=== PATIENT | male | born 1955 | race African-American/Black ===

== ENCOUNTER 2019-04-21 07:49 | Outpatient (CLI) | payer SELFPAY ==
--- NOTE | ~2019-04-21 | CT_ITS ---
EXAMINATION: CT brain w con EXAM DATE: 04/21/2019 08:34 INDICATION: Migraine headaches. Dizziness. Right hand paresthesia. Blurred vision. TECHNIQUE: Spiral CT of the head was performed following injection of 100 mL intravenous Omnipaque 35 0 solution. Axial, coronal and sagittal images were reviewed. The dose-length product (DLP) for thi s examination was 605.33 mGy-cm. The exposure was tailored according to patient size, and iterative reconstruction (ASIR) was used as additional dose reduction technique. There is no prior study for c omparison. FINDINGS: There is no acute intraparenchymal hemorrhage. No evidence of intraparenchymal brain mass lesion. No evidence of acute infarction. There is no mass effect or midline shift. The ventricles are normal in size. There are no extra-axial collections. There are no acute calvarial fractures. T he orbits are unremarkable. Soft tissue is unremarkable. Mild left ethmoid mucoperiosteal thickenin g. There are no areas of abnormal enhancement on the postcontrast images. IMPRESSION: 1. Unremarkable head CT examination. Reviewed, dictated and finalized at location A.
[2019-04-21 08:25] LABS: Estimated Glomerular Filt Rate > 60
== END 2019-04-21 07:50 | disposition home or self-care (01) ==
PROVIDERS: PCP Physician Assistant; Visit Provider Physician Assistant
DX: G43.909 Migraine, unspecified, not intractable, without status migrainosus (principal)
CPT/HCPCS: 36415; 70460; Q9967

== ENCOUNTER 2024-01-16 09:43 | Observation (INO) | payer MEDICARE, SELFPAY ==
[2024-01-16] VITALS (12 sets, daily range): BP systolic 116–134; BP diastolic 51–83; PULSE 40–75; RESP 15–26; TEMP 36.1–36.7; O2SAT 94–100; BMI 31.6
--- NOTE | ~2024-01-16 | US_ITS ---
US breast RT complete 01/16/2024 17:56 Indication: Breast tenderness Procedure: High-resolution complete ultrasound of the right breast including all 4 quadrants in the s ubareolar location Comparison: No prior studies for comparison. Findings: There is normal heterogeneous echotexture in the right breast. There is ill-defined shadowi ng inferiorly in the right breast although no discrete mass identified. Impression: 1: Ill-defined shadowing of the right breast inferiorly without discrete mass. Correlation with diagn ostic right mammogram recommended. BI-RADS CATEGORY 0 - INCOMPLETE STUDY, NEED ADDITIONAL IMAGING EVALUATION. Reviewed, dictated and finalized at location B. SSMENT COORDINATOR Impression: 1: Ill-defined shadowing of the right breast inferiorly without discrete mass. Correlation with diagnostic right mammogram recommended. BI-RADS CATEGORY 0 - INCOMPLETE STUDY, NEED ADDITIONAL IMAGING EVALUATION.
--- NOTE | ~2024-01-16 | XR_ITS ---
XR chest 2V Ordering provider: Anderson Teran MD History: 68 years Male with . chest pain FRONTAL WALL DIZZINESS X 2 DAYS HX HBP . Comparison: None. FINDINGS: MEDIASTINUM: The cardiac silhouette is not enlarged. LUNGS: No infiltrates, effusions or pneumothorax. OTHER: No free air under the diaphragm. Degenerative changes of the spine. IMPRESSION: No acute cardiopulmonary pathology. Reviewed, dictated and finalized at location A. KNIFE FOXING CUTTER
--- NOTE | ~2024-01-16 | CT_ITS ---
EXAMINATION: CTA brain carotid DATE: 01/17/2024 14:30 INDICATION: Dizziness. Ataxia. TECHNIQUE: Computed tomographic angiography (CTA) of the head was performed without and with 100 mL O mnipaque-350 intravenous contrast. CTA of the neck was performed with intravenous contrast. Automated exposure control and iterative reconstruction technique were employed. The dose-length product was 1 639.23 mGy-cm. Maximum intensity projection and volume rendered 3D-reconstructions were created by anitra zamarripa technologist on a separate workstation. COMPARISON: Head CT 01/16/2024 FINDINGS: HEAD CTA: There is no intracranial hemorrhage, acute infarction, or abnormal intracranial mass lesion . There are scattered areas of low attenuation in the cerebral white matter, which is within normal l imits for the patient's age. The ventricles are normal in size. The orbits are normal. There is mild mucosal thickening in the paranasal sinuses. The mastoid air cells are normal. Left vertebral artery is dominant. There is no significant stenosis of basilar artery or the posterior cerebral arteries. T he posterior communicating arteries are normal. There is no significant stenosis of the intracranial internal carotid arteries or anterior or middle cerebral arteries. Anterior communicating artery is n ormal. There is no aneurysm. There is a subcutaneous radiopaque foreign body in left cheek. NECK CTA: There are no pathologically enlarged lymph nodes. There is no significant stenosis of the v ertebral arteries. There is no significant plaque in the proximal internal carotid arteries. There is 0% stenosis of the proximal right internal carotid artery relative to normal distal artery lumen brianna meter (NASCET criteria). There is 0% stenosis of the proximal left internal carotid artery relative t o normal distal artery lumen diameter. There is mild cervical spondylosis. IMPRESSION: 1. Normal aging brain. No aneurysm or significant intracranial arterial stenosis. 2. 0% stenosis of the proximal internal carotid arteries relative to normal distal artery lumen diame ters (NASCET criteria). Reviewed, dictated and finalized at location A. ING AND MOBILITY TECHNOLOGIST IMPRESSION: 1. Normal aging brain. No aneurysm or significant intracranial arterial stenosi s. 2. 0% stenosis of the proximal internal carotid arteries relative to normal dis arslan artery lumen diameters (NASCET criteria).
--- NOTE | ~2024-01-16 | CT_ITS ---
CT brain wo con Ordering provider: Anderson Teran MD History: 68 years Male with . Vertigo . Comparison: None. Technique: CT of the head without contrast. Radiation reduction technique utilized.The dose-length product was 605.33 mGy-cm. FINDINGS: BRAIN PARENCHYMA AND CSF SPACES: No midline shift, mass effect or hemorrhage. The brain parenchyma a nd CSF spaces are otherwise normal. VISUALIZED PARANASAL SINUSES: Well aerated. MASTOIDS: Well aerated. BONES: The bones appear intact. SOFT TISSUES: Visualized nasopharynx is normal. Superficial soft tissues are normal. IMPRESSION: No acute intracranial findings. Reviewed, dictated and finalized at location A. GRADER
--- NOTE | 2024-01-16 09:46 | ECG_ITS ---
Test Date: 2024-01-16 09:48:39 Measurements Intervals [place] Rate: 72 P: 35 CA: 169 QRS: 14 QRSD: 83 T: 45 QT: 363 QTc: 397 Interpretive Statements SINUS RHYTHM No previous ECG available for comparison Electronically Signed On 01-16-2024 18:58:47 MEAT STUFFER by Luisa Rod
--- NOTE | 2024-01-16 09:52 | ED.CHESTPAIN ---
HPI - Chest Pain General Chief Complaint: Chest Pain Stated Complaint: dizzy with CP Time Seen by Provider: 01/16/24 09:51 History of Present Illness HPI narrative: [age] years old male came to the ED from home by ambulance complaining of lightheadedness, dizziness, the room spins in 50 mph, worse when he stand or changing head or body position. Denies any nausea or vomiting or fever or chills. Patient is telling me that he been having intermittent right chest pain for 1 and have year after removing a cyst from that area, the chest pain is still intermittent, not different than in the last 1 and have year. Worse with positioning and movement. History of diabetes, hypertension, hyperlipidemia, patient is not on aspirin or anticoagulant medication. Related Data Allergies Allergy/AdvReac Type Severity Reaction Status Date / Time lisinopril Allergy Severe angioedema Unverified 01/16/24 11:02 Exam Narrative: General appearance: Well-developed, well-nourished Skin: Normal color Head: Normocephalic, nontraumatic Eyes: Clear conjunctiva ENT: Oropharynx normal, ears normal, nose normal Neck: Supple, nontender Chest and respiratory: Airway patent, no respiratory distress, no accessory muscle use right chest exam showed no bruises, no swelling, no rash, severe tenderness with light palpation consistent with his previous chest pain Heart: Regular rate/rhythm Abdomen: Soft, nontender, no organomegaly, quiet bowel sounds Vascular: Normal peripheral pulses, normal capillary refill. 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 is normal as tested, no gross motor deficit Course Vital Signs Vital signs: Vital Signs Temperature 36.7 C 01/16/24 09:43 Pulse Rate 74 01/16/24 09:43 Respiratory Rate 16 01/16/24 09:43 Blood Pressure 131/66 01/16/24 09:43 Pulse Oximetry 99 01/16/24 09:43 Oxygen Delivery Room Air 01/16/24 09:43 Temperature 36.7 C 01/16/24 09:43 Pulse Rate 74 01/16/24 09:43 Respiratory Rate 16 01/16/24 09:43 Blood Pressure 131/66 01/16/24 09:43 Pulse Oximetry 99 01/16/24 09:43 Oxygen Delivery Room Air 01/16/24 09:43 MDM - Chest Pain MDM Narrative Medical decision making narrative: Patient presents with dizziness, room spinning Vital signs are stable Physical examination showing a patient with dizziness with any head or body movement. Patient is telling me that closing eyes make the dizziness less potent. Differential diagnosis include vertigo, CVA Blood workup today includes CBC, CMP, troponin, lipase showed NO SIGNIFICANT ABNORMALITY Chest x-ray showed NO ACUTE ABNORMALITY CT head without contrast showed EKG showed Differential Diagnosis Differential diagnosis: Likely other ( ABOVE) Medical Records Data Attestation: I reviewed the patient's medical records. Lab Data Attestation: I reviewed the patient's lab results. 01/16/24 09:52 01/16/24 09:52 Labs: Lab Results 01/16/24 01/16/24 Range/Units 09:52 12:57 WBC 4.8 (4.5-10.0) K/mm3 RBC 5.08 (4.6-6.20) M/mm3 Hgb 14.1 (14.0-18.0) g/dL Hct 44.2 (42.0-52.0) % MCV 87.0 (80-100) fl MCH 27.8 (26-34) pg MCHC 31.9 L (32-36) g/dl RDW 13.8 (11.5-14.5) % Plt Count 135 L (150-375) k/mm3 MPV 12.1 H (7.4-10.4) fl Immature Gran % (Auto) 0.2 (0-0.5) % Neut % (Auto) 61.2 (45.5-73.1) % Lymph % (Auto) 29.3 (18.3-44.2) % Finney % (Auto) 5.8 (2.6-8.5) % Eos % (Auto) 2.5 (0-4.4) % Baso % (Auto) 1.0 (0.2-1.2) % Lymph # (Auto) 1.41 (0.9-3.2) K/mm3 Finney # (Auto) 0.3 (0.1-0.6) K/mm3 Eos # (Auto) 0.1 (0-0.3) K/mm3 Baso # (Auto) 0.1 (0.0-0.1) K/mm3 Abs Immat Gran (auto) 0.01 (0.00-0.031) K/mm3 Absolute Neuts (auto) 3.0 (1.3-6.7) K/mm3 Absolute Nucleated RBC 0.000 (0.0-0.012) K/mm3 Nucleated RBC % 0.0 (0.0-0.2) % PT 13.7 (11.1-14.7) Seconds INR 1.0 APTT 27.8 (22.3-36.8) Seconds Sodium 140 (137-145) mmol/L Potassium 3.9 (3.4-5.0) mmol/L Chloride 108 H (98-107) mmol/L Carbon Dioxide 29 (22-30) mmol/L Anion Gap 3 L (4-12) mmol/L BUN 10 (9-20) mg/dL Creatinine 1.00 (0.7-1.3) mg/dL Estim Creat Clear Calc 66 ml/min Estimated GFR > 60 (59 - ) Glucose 110 (65-110) mg/dL Calcium 9.2 (8.4-10.2) mg/dL Total Bilirubin 0.6 (0.2-1.3) mg/dL AST 38 (17-59) U/L ALT 25 (6-50) U/L Alkaline Phosphatase 61 (38-126) U/L Troponin I 0.019 < 0.012 D (0.000-0.034) ng/mL Total Protein 8.0 (6.3-8.2) g/dL Albumin 4.2 (3.5-5.1) g/dL Lipase 90 (23-300) U/L Imaging Data Radiologist's impression: Impressions Chest X-Ray 01/16/24 10:15 IMPRESSION: No acute cardiopulmonary pathology. Head CT 01/16/24 10:46 IMPRESSION: No acute intracranial findings. ECG Data EKG #1: Attestation: I personally reviewed and interpreted this ECG as follows: ECG completion date: 01/16/24 Interpretation: NORMAL SINUS RHYTHM AT 72 BEATS PER MINUTE, NO PREVIOUS EKG AVAILABLE FOR COMPARISON EKG #2: Attestation: I personally reviewed and interpreted this ECG as follows: ECG completion date: 01/16/24 Interpretation: SINUS BRADYCARDIA AT 47 BEATS PER MINUTE, COMPARED TO EKG EARLY TODAY SINUS RHYTHM NO LONGER PRESENT Critical Care Time Critical Care Time Critical Care Time: Yes Total Critical Care Time: 30 Discharge Plan Discharge Clinical Impression: Vertigo, Bradycardia, severe sinus, Chest pain at rest Patient Disposition: Still a Patient Condition: Stable Additional Instructions: ADMIT TO HOSPITALIST Patient Language: Greek Follow-up/Referrals: Fernie,JOHAN Marie [Non-Staff] - Quality Stroke Scale Stroke Scale 1: Stroke scale date:: 01/16/24 1a Level of consciousness: alert-0 1b Level of consciousness questions: answers both correctly-0 1c Level of consciousness commands: obeys both correctly-0 2 Best gaze: normal-0 3 Visual: no visual loss-0 4 Facial palsy: normal-0 5a Motor: left arm: no drift-0 5b Motor: right arm: no drift-0 6a Motor: left leg: no drift-0 6b Motor: right leg: no drift-0 7 Limb ataxia: absent-0 8 Sensory: normal-0 9 Best language: no aphasia-0 10 Dysarthria: normal-0 11 Extinction and inattention: no abnormality-0 Level:: 0 HEART score for chest pain patients History: slightly suspicious ECG: normal Age: > or = to 65 years Risk factors: > or = to 3 risk factors of atherosclerotic disease Troponin: < or = to 1x normal limit Heart score: 4
[2024-01-16 10:02] LABS: Basophils Absolute Auto 0.1 K/mm3 (0.0-0.1); Eosinophils Absolute Auto 0.1 K/mm3 (0-0.3); Eosinophils Percent Auto 2.5 % (0-4.4); Hematocrit 44.2 % (42.0-52.0); Hemoglobin 14.1 g/dL (14.0-18.0); Immature Granulocyte Absolute 0.01 K/mm3 (0.00-0.031); Immature Granulocyte Percent A 0.2 % (0-0.5); Lymphocytes Absolute Auto 1.41 K/mm3 (0.9-3.2); Lymphocytes Percent Auto 29.3 % (18.3-44.2); Mean Corpuscular HGB Conc 31.9 g/dl (32-36); Mean Corpuscular Hemoglobin 27.8 pg (26-34); Mean Platelet Volume 12.1 fl (7.4-10.4); Monocytes Absolute Auto 0.3 K/mm3 (0.1-0.6); Monocytes Percent Auto 5.8 % (2.6-8.5); Neutrophils Percent Auto 61.2 % (45.5-73.1); Platelet Count Result 135 k/mm3 (150-375); Red Blood Count 5.08 M/mm3 (4.6-6.20); Red Cell Distribution Width 13.8 % (11.5-14.5); White Blood Count 4.8 K/mm3 (4.5-10.0)
[2024-01-16 10:10] LABS: Alanine Aminotransferase 25 U/L (6-50); Albumin Level 4.2 g/dL (3.5-5.1); Alkaline Phosphatase 61 U/L (38-126); Anion Gap 3 mmol/L (4-12); Aspartate Amino Transferase 38 U/L (17-59); Bilirubin,Total 0.6 mg/dL (0.2-1.3); Blood Urea Nitrogen 10 mg/dL (9-20); Calcium 9.2 mg/dL (8.4-10.2); Carbon Dioxide 29 mmol/L (22-30); Chloride 108 mmol/L (98-107); Estimated CRCL calculation 66 ml/min; Estimated Glomerular Filt Rate > 60; Glucose 110 mg/dL (65-110); Lipase 90 U/L (23-300); Potassium 3.9 mmol/L (3.4-5.0); Sodium 140 mmol/L (137-145)
[2024-01-16 10:14] LABS: Partial Thromboplastin Time 27.8 Seconds (22.3-36.8); Prothrombin Time 13.7 Seconds (11.1-14.7)
[2024-01-16 10:22] LABS: Troponin I 0.019 ng/mL (0.000-0.034)
[2024-01-16] MEDS: MECLIZINE HCL 25 MG TABLET PO (11:04)
[2024-01-16] MEDS: ONDANSETRON INJ 4 MG/2 ML VIAL IV PUSH (11:04)
[2024-01-16] MEDS: diazePAM (*CRX) 5 MG TABLET PO (11:04)
--- NOTE | 2024-01-16 12:02 | ECG_ITS ---
Test Date: 2024-01-16 12:08:21 Measurements Intervals [place] Rate: 47 P: 35 MN: 174 QRS: 10 QRSD: 86 T: 28 QT: 435 QTc: 385 Interpretive Statements SINUS BRADYCARDIA Compared to ECG 01/16/2024 09:48:39 Sinus rhythm no longer present Electronically Signed On 01-16-2024 19:00:00 TAX EXAMINING TECHNICIAN by Luisa Rod
--- NOTE | 2024-01-16 12:12 | PC.NURSE ---
Pt's HR back down in the 40's, repeat EKG done. MD Teran also updated, pt is still continuing to feel very dizzy with any movement, even following medications. Plan for admission per MD Teran.
--- NOTE | 2024-01-16 13:08 | ECG_ITS ---
Test Date: 2024-01-16 13:08:17 Measurements Intervals [place] Rate: 42 P: 45 NE: 172 QRS: 31 QRSD: 92 T: 46 QT: 441 QTc: 372 Interpretive Statements SINUS BRADYCARDIA Compared to ECG 01/16/2024 12:08:21 No significant changes Electronically Signed On 01-16-2024 19:01:01 CONSULTANT by Luisa Rod
[2024-01-16 13:31] LABS: Troponin I < 0.012 ng/mL (0.000-0.034)
[2024-01-16] MEDS: ASPIRIN 81 MG CHEWABLE TABLET 324 MG PO (14:54)
--- NOTE | 2024-01-16 16:48 | ECG_ITS ---
Test Date: 2024-01-16 16:48:02 Measurements Intervals [place] Rate: 41 P: 43 RI: 181 QRS: 36 QRSD: 85 T: 46 QT: 430 QTc: 355 Interpretive Statements SINUS BRADYCARDIA Compared to ECG 01/16/2024 13:08:17 No significant changes Electronically Signed On 01-17-2024 15:35:32 ART DEALER by Luisa Rod
--- NOTE | 2024-01-16 17:08 | P.HP_ITS ---
H&P: HPI History of Present Illness Date/Time: 01/16/24 17:08 Chief Complaint: Dizziness Narrative: 68-year-old male past medical history of the type 2 diabetes hypertension hyperlipidemia, history of right breast lump status post lumpectomy presented to the ER on account of dizziness and Right breast pain. Patient reported he was in his usual state of health until yesterday when he stated haivng dizziness, which he described as the room spinning. Exacerbated with movement especially with head movements. Denies any lightheadedness, no chest pressure no fall no loss of consciousness no head trauma. Also reported a right breast pain, noted about a year ago he had lumpectomy on the same side as the having his pain about a few months ago has contacted his primary care physician but are trying to set him up with General surgery. Otherwise no diarrhea no abdominal pain and vomiting focal symptoms and no runny nose. Her blood pressure 131/66, pulse 74, respiratory 16 status night 99% on room air . ER noted that patient's heart rate was in the 40s on presentation on EKG showed sinus bradycardia who receive atropine which improved heart rate into the 70s. Labs mostly unremarkable. CT head and chest unremarkable patient was admitted for further evaluation and care. neurology was consulted prior to admission. Review of Systems Review of Systems: All other systems reviewed and negative except as in the history above. Meds Home Medications and Allergies Allergies Allergy/AdvReac Type Severity Reaction Status Date / Time lisinopril Allergy Severe angioedema Unverified 01/16/24 11:02 Vital Signs Vital Signs - 24 hr 01/16/24 09:43 Temperature 98.1 F Pulse Rate 74 Respiratory Rate 16 Blood Pressure 131/66 Pulse Oximetry 99 Oxygen Delivery Room Air Exam Narrative: General: alert and comfortable Eyes: EOMI, PERRLA ENNT External ears normal, Neck is supple, no masses, Respiratory systems: Clear to auscultation Cardiovascular S1, S2, normal rhythm, no murmur, rub, or gallop; no thrill or palpable murmurs on palpation. Gastrointestinal: soft, non-tender, and non-distended abdomen with no masses; BS present Skin: no rash, lesions, ulcerations, subcutaneous nodules or induration Musculoskeletal: right breast tenderness Neurologic: Alert and oriented x3, non focal Mental Status Exam: normal affect H&P: Results Labs Labs: Short CBC 01/16/24 Range/Units 09:52 WBC 4.8 (4.5-10.0) K/mm3 Hgb 14.1 (14.0-18.0) g/dL Hct 44.2 (42.0-52.0) % Plt Count 135 L (150-375) k/mm3 BMP 01/16/24 09:52 Sodium 140 Potassium 3.9 Chloride 108 H Carbon Dioxide 29 BUN 10 Creatinine 1.00 Glucose 110 Calcium 9.2 Cardiac Enzymes 01/16/24 01/16/24 Range/Units 09:52 12:57 Troponin I 0.019 < 0.012 D (0.000-0.034) ng/mL Liver Function 01/16/24 Range/Units 09:52 Total Bilirubin 0.6 (0.2-1.3) mg/dL AST 38 (17-59) U/L ALT 25 (6-50) U/L Alkaline Phosphatase 61 (38-126) U/L Albumin 4.2 (3.5-5.1) g/dL Assessment and Plan Assessment and plan (1) Bradycardia, severe sinus: Code(s): R00.1 - Bradycardia, unspecified Status: Acute (2) Vertigo: Code(s): R42 - Dizziness and giddiness Status: Acute Plan Vertigo Patient presented with dizziness worse with movement especially head movement CT head unremarkable MRI brain ordered PT/OT consulted Neurology consulted continue Meclizine for now Possible Sinus Bradycardia EKG showed sinus bradycardia Patient received Atropine which improved HR to 70s. ECHO ordered, troponin Cardiology consulted Right breast pain tenderness on palpation Ultrasound pending GEn surgery consulted DM2 SSi with accucheks monitor HTN titrate home meds with clinical course HLD continue Statin DVT prophylaxis on Sq Lovenox Full code Surrogate decision maker [facility] Advance Care Plan I have confirmed that the patient's Advanced Care Plan is present, code status is documented, or surrogate decision maker is listed in patient medical record.: Yes Medication Reconciliation I have utilized all available resources to obtain, update and review the patients current medications (includes all prescriptions, OTC, herbals, cannabis, and nutritional supplements).: Yes
[2024-01-16 17:36] LABS: Troponin I 0.015 ng/mL (0.000-0.034)
--- NOTE | 2024-01-16 20:25 | ADMGEN ---
This patient, Jaden Hamilton, was admitted to [facility] Surg Room 303-01. Patient/family oriented to hospital policies and general routines including ID bracelet, bed and alarms, visiting hours, pain management, procedures, bathroom and other care routines, personal items, smoking policy, room service/diet, and visiting hours. Information on how to activate the Rapid Response Team has been discussed. Patient/Family are encouraged to report perceived risks to care and to ask questions if they do not understand what they are told or what they should do.
[2024-01-16 20:39] LABS: Glucose Point of Care 117 mg/dl (65-105)
[2024-01-16] MEDS: MECLIZINE HCL 12.5 MG TABLET PO (23:56)
[2024-01-17] VITALS: BP 110/60; PULSE 40; PULSE 55; RESP 20; TEMP 36.3; O2SAT 97
--- NOTE | 2024-01-17 | ECHO_ITS ---
Patient Info Name: Jaden Hamilton Age: 68 years : 1955 Gender: Male Ht: 66 in Wt: 192 lbs BSA: 2.04 m2 HR: 42 bpm BP: 123 / 59 mmHg Technical Quality: Fair Exam Date: 01/17/2024 10:05 AM Exam Location: Echo Lab Patient Status: Inpatient Admit Date: 01/16/2024 Staff Ordering Physician: Hetal Devlin MD Damper Worker: Frank Laughlin RDCS Attending Provider: Sisi Mc MD Exam Type: CA echo doppler color flow Study Info Indications R00.1 - Bradycardia, unspecified Complete two-dimensional, color flow and Doppler transthoracic echocardiogram is performed. Summary 1. Complete two-dimensional, color flow and Doppler transthoracic echocardiogram is performed. 2. Left ventricular chamber dimension is normal. 3. There is no increased left ventricular wall thickness. 4. Left ventricular systolic function is normal with an ejection fraction by Biplane Method of Discs of 63 %. 5. Normal diastolic function for age. 6. Right ventricular chamber dimension is normal. 7. Right ventricular systolic function is normal. 8. There is mild aortic valve regurgitation. 9. There is no aortic valve stenosis with a peak velocity of 190 cm/s, mean gradient of 7 mmHg, and aortic valve area of 1.7 cm2. 10. PASP cannot be 11. estimated as insufficient TR jet. Left Ventricle Left ventricular chamber dimension is normal. There is no increased left ventricular wall thickness. Left ventricular systolic function is normal with an ejection fraction by Biplane Method of Discs of 63 %. Normal diastolic function for age. Right Ventricle Right ventricular chamber dimension is normal. Right ventricular systolic function is normal. Left Atria Left atrial chamber dimension is normal. Right Atria Right atrial chamber dimension is normal. Aortic Valve The aortic valve is trileaflet. There is mild aortic valve regurgitation. There is no aortic valve stenosis with a peak velocity of 190 cm/s, mean gradient of 7 mmHg, and aortic valve area of 1.7 cm2. Mild aortic annular calcification. Mitral Valve The mitral valve has normal leaflets. There is no mitral valve regurgitation. Tricuspid Valve There is no tricuspid valve regurgitation. PASP cannot be estimated as insufficient TR jet. Pericardium/Pleural There is no pericardial effusion. Inferior Vena Cava Normal inferior vena cava with >50% collapse upon inspiration consistent with normal right atrial pressure, 3 mmHg. Aorta The prox ascending aorta size is normal. The aortic root size at the sinus of Valsalva is normal. Left Ventricular Outflow Tract Name Value Normal LVOT 2D LVOT Diameter 1.9 cm LVOT Doppler LVOT Peak Gradient 7 mmHg LVOT Mean Gradient 3 mmHg LVOT VTI 27 cm LVOT VTI/AV VTI Ratio 0.6 LVOT Stroke Volume 75 ml LVOT CO 3.1 l/min LVOT CI 1.5 l/min/m2 Pulmonic Valve Name Value Normal PV Doppler PV Peak Gradient 3 mmHg PV Regurgitation Doppler IL Peak End Diastolic Velocity 64 cm/s Mitral Valve Name Value Normal MV Doppler MV Decel Stone 429 cm/s2 MV PHT 65 ms MV Area (PHT) 3.4 cm2 4.0-5.0 MV Diastolic Function MV E Peak Velocity 97 cm/s MV A Peak Velocity 60 cm/s MV E/A 1.6 MV Decel Time 225 ms Tricuspid Valve Name Value Normal TV Regurgitation Doppler TR Peak Velocity 216 cm/s TR Peak Gradient 19 mmHg Estimated PAP/RSVP RA Pressure 3 mmHg <=5 PA Systolic Pressure 22 mmHg <36 RV Systolic Pressure 22 mmHg <36 Aorta Name Value Normal Ascending Aorta Ao Root Diameter (MM) 2.3 cm Ao Root Diam Index (MM) 1.1 cm/m2 Aortic Valve Name Value Normal AV Doppler AV Peak Velocity 190 cm/s AV Peak Gradient 14 mmHg AV Mean Gradient 7 mmHg AV VTI 44 cm AV Area (Cont Eq VTI) 1.7 cm2 >=3.0 AV Area (Cont Eq Hernandez) 2.0 cm2 AV Regurgitation 2D LVOT Area 2.8 cm2 AV Regurgitation Doppler AR Decel Time 2,702 ms AR Decel Stone 152 cm/s2 AR PHT 784 ms Ventricles Name Value Normal LV Dimensions 2D/MM IVS Diastolic Thickness (2D) 0.8 cm 0.6-1.0 IVS Diastole Thickness (MM) 0.8 cm 0.6-1.0 LVID Diastole (2D) 4.7 cm 4.2-5.8 LVID Diastole (MM) 4.9 cm 4.2-5.8 LVIW Diastolic Thickness (2D) 1.0 cm 0.6-1.0 LVIW Diastolic Thickness (MM) 0.9 cm 0.6-1.0 LVID Systole (2D) 3.0 cm 2.5-4.0 LVID Systole (MM) 2.9 cm 2.5-4.0 LVOT Diameter 1.9 cm LV Mass (2D Cubed) 145.41 g 88.00-224.00 LV Mass Index (2D Cubed) 71 g/m2 49-115 Relative Wall Thickness (2D) 0.45 LV Mass (MM Cubed) 145.77 g 88.00-224.00 LV Mass Index (MM Cubed) 71 g/m2 49-115 Relative Wall Thickness (MM) 0.36 LV Fractional Shortening/Ejection Fraction 2D/MM LV Fractional Shortening (2D) 35 % 25-43 LV Fractional Shortening (MM) 42 % 25-43 LV EF (MM Teicholz) 73 % 52-72 LV EF (2D Teicholz) 65 % 52-72 LV Diastolic Volume (4C MOD) 98 ml LV EF (4C MOD) 65 % LV Diastolic Volume (2C MOD) 49 ml LV EF (2C MOD) 66 % LV Diastolic Volume (BP MOD) 72 ml 62-150 LV Diastolic Volume Index (BP MOD) 35 ml/m2 34-74 LV Systolic Volume (BP MOD) 26 ml 21-61 LV Systolic Volume Index (BP MOD) 13 ml/m2 11-31 LV EF (BP MOD) 63 % 52-72 LV Diastolic Length (4C) 9.3 cm LV Systolic Length (4C) 7.6 cm LV Stroke Volume (4C MOD) 63 ml Atria Name Value Normal LA Dimensions LA Dimension (MM) 3.9 cm 3.0-4.1 LA Volume (4C A-L) 43 ml LA Volume (BP A-L) 42 ml RA Dimensions RA Area (4C) 12.3 cm2 <=18.0 Report Signatures
[2024-01-17 04:00] VITALS: BP 123/59; PULSE 41; PULSE 42; RESP 20; TEMP 36.3; O2SAT 100
[2024-01-17 07:38] LABS: Basophils Absolute Auto 0.1 K/mm3 (0.0-0.1); Basophils Percent Auto 1.3 % (0.2-1.2); Eosinophils Absolute Auto 0.2 K/mm3 (0-0.3); Eosinophils Percent Auto 3.4 % (0-4.4); Hematocrit 42.1 % (42.0-52.0); Hemoglobin 13.5 g/dL (14.0-18.0); Immature Granulocyte Absolute 0.01 K/mm3 (0.00-0.031); Immature Granulocyte Percent A 0.2 % (0-0.5); Lymphocytes Absolute Auto 1.83 K/mm3 (0.9-3.2); Lymphocytes Percent Auto 38.7 % (18.3-44.2); Mean Corpuscular HGB Conc 32.1 g/dl (32-36); Mean Corpuscular Hemoglobin 27.8 pg (26-34); Mean Corpuscular Volume 86.6 fl (80-100); Mean Platelet Volume 12.7 fl (7.4-10.4); Monocytes Absolute Auto 0.3 K/mm3 (0.1-0.6); Monocytes Percent Auto 6.6 % (2.6-8.5); Neutrophils Absolute Auto 2.4 K/mm3 (1.3-6.7); Neutrophils Percent Auto 49.8 % (45.5-73.1); Platelet Count Result 135 k/mm3 (150-375); Red Blood Count 4.86 M/mm3 (4.6-6.20); Red Cell Distribution Width 13.9 % (11.5-14.5); White Blood Count 4.7 K/mm3 (4.5-10.0)
[2024-01-17 07:57] LABS: Alanine Aminotransferase 24 U/L (6-50); Albumin Level 3.9 g/dL (3.5-5.1); Alkaline Phosphatase 57 U/L (38-126); Anion Gap 3 mmol/L (4-12); Aspartate Amino Transferase 36 U/L (17-59); Bilirubin,Total 0.8 mg/dL (0.2-1.3); Blood Urea Nitrogen 12 mg/dL (9-20); Carbon Dioxide 30 mmol/L (22-30); Chloride 108 mmol/L (98-107); Estimated CRCL calculation 56 ml/min; Estimated Glomerular Filt Rate > 60; Glucose 87 mg/dL (65-110); Magnesium 2.2 mg/dL (1.6-2.3); Potassium 3.9 mmol/L (3.4-5.0); Sodium 141 mmol/L (137-145)
[2024-01-17 08:00] VITALS: BP 135/58; PULSE 40; PULSE 42; RESP 16; TEMP 35.9; O2SAT 94
[2024-01-17 08:00] LABS: Glucose Point of Care 96 mg/dl (65-105)
--- NOTE | 2024-01-17 11:32 | PM.CNGS ---
Assessment and Plan Assessment and plan (1) Pain of right breast: Code(s): N64.4 - Mastodynia Status: Acute Assessment and Plan: This is the reason for our consultation. The patient has had right breast pain and tenderness of a subareolar scar following a breast surgery about 1 year ago. This pain is unchanged over the past year and etiology is unclear. There is no signs of an infection on exam, and this appears to be more of a chronic issue. Right breast ultrasound showed shadowing of the inferior right breast without discrete mass. This does not appear to be contributing to his acute issues that prompted his admission. We will order a diagnostic right mammogram as recommended by the radiologist. If there is no concern for malignancy, then the patient can follow-up with his surgeon in [place] as an outpatient or he can see Dr. Rosenberg, the breast surgeon here at [place] as an outpatient in February. (2) Bradycardia, severe sinus: Code(s): R00.1 - Bradycardia, unspecified Status: Acute (3) Vertigo: Code(s): R42 - Dizziness and giddiness Status: Acute Plan I have discussed the patient's case and plan of care with Dr. Goode. Thank you for allowing us to see the patient in consultation. History of Present Illness Consult details Consult date: 01/17/24 Reason for consult: other (Right breast pain) Requesting physician: Hetal Devlin MD Narrative: This is a 68-year-old man who we have been asked to see in surgical consultation for right breast pain. He presented to the ED yesterday due to complaints of lightheadedness and dizziness x 1 day. When he was in the ED, he also reported right-sided chest pain which has been ongoing for the past year. The patient reportedly had breast surgery at [facility] 1 year ago. He reports having some type of ?lump? removed. He cannot recall with the pathology showed, but when questioned further, he thought it may have been a cyst. He states that it was not a malignancy. He denies having any postoperative complications or postop infections. Immediately after surgery, he continued to notice a smaller lump that was buffing machine tender and painful. This was the reason he initially had the surgery was due to the pain. Since the surgery, he has had tenderness in this area an intermittent pain that remains unchanged for the past year. He was told by the surgeon at that time, that they would do an additional surgery, but he has not heard back from the office and has not contacted them. He denies any nipple drainage or increased swelling or changes more recently. Workup in the ED showed bradycardia and he was admitted for further workup. Cardiology has been consulted and he got an echocardiogram this morning. He is now seen in consultation. Right breast ultrasound was ordered this morning and showed an ill-defined shadowing of the right breast inferiorly without discrete mass, recommending correlation with diagnostic right mammogram. Review of Systems Review of Systems: All systems reviewed & are unremarkable except as noted in HPI and below [facility] Surgical History Surgical History History of reduction surgery of right breast Social History Social History Second hand tobacco smoke exposure: No Alcohol intake: former Substance use: never Do You Feel Safe in your Home?: Yes Lack of Transportation: No Lack of Food: Never True Current Housing: I Have Housing Concerned About Future Housing: No Difficulty Paying Gas/Electric Bills: No Difficulty Paying for Meds: No Currently Unemployed: No Education: High School Diploma/GED Difficulty w/ Childcare or Family Care: No Spiritual care concerns: No Meds Home Medications and Allergies Home Medications ?Medication ?Instructions ?Recorded ?Confirmed ?Type amlodipine 10 mg tablet 10 mg PO DAILY 01/16/24 01/16/24 History celecoxib 100 mg capsule 100 mg PO Q24H 01/16/24 01/16/24 History cetirizine 10 mg tablet 10 mg PO DAILY 01/16/24 01/16/24 History hydrochlorothiazide 12.5 mg capsule 12.5 mg PO DAILY 01/16/24 01/16/24 History metformin 500 mg tablet,extended 500 mg PO DAILY 01/16/24 01/16/24 History release 24 hr rosuvastatin 20 mg tablet 20 mg PO HS 01/16/24 01/16/24 History spironolactone 25 mg tablet 25 mg PO DAILY 01/16/24 01/16/24 History Allergies Allergy/AdvReac Type Severity Reaction Status Date / Time lisinopril Allergy Severe angioedema Verified 01/16/24 21:57 Vital Signs Vital Signs - 24 hr 01/16/24 12:00 01/16/24 12:05 01/16/24 12:30 Temperature Pulse Rate 46 L 46 L Respiratory Rate 18 16 Blood Pressure 126/65 125/59 L Pulse Oximetry 99 94 Oxygen Delivery Room Air 01/16/24 13:30 01/16/24 14:30 01/16/24 15:30 Temperature Pulse Rate 46 L 47 L 58 L Respiratory Rate 18 18 16 Blood Pressure 117/53 L 125/68 129/83 Pulse Oximetry 99 98 98 Oxygen Delivery 01/16/24 16:30 01/16/24 18:08 01/16/24 20:00 Temperature 97.0 F L Pulse Rate 43 L 40 L 75 Respiratory Rate 16 16 16 Blood Pressure 116/70 134/60 117/51 L Pulse Oximetry 96 98 100 Oxygen Delivery 01/16/24 20:00 01/16/24 20:00 01/17/24 00:00 Temperature Pulse Rate 42 L 55 L Respiratory Rate Blood Pressure Pulse Oximetry Oxygen Delivery Room Air 01/17/24 00:00 01/17/24 04:00 01/17/24 04:00 Temperature 97.4 F L 97.4 F L Pulse Rate 40 L 41 L 42 L Respiratory Rate 20 20 Blood Pressure 110/60 123/59 L Pulse Oximetry 97 100 Oxygen Delivery 01/17/24 08:00 01/17/24 08:00 01/17/24 08:00 Temperature 96.7 F L Pulse Rate 42 L 40 L Respiratory Rate 16 Blood Pressure 135/58 L Pulse Oximetry 94 Oxygen Delivery Room Air Exam Const: General: comfortable and no acute distress Nutritional Appearance: average body habitus Orientation/consciousness: patient oriented x3 HENMT: Head: normocephalic and atraumatic Ears: hearing grossly normal bilaterally Mouth: Yes moist mucous membranes Eyes: General: appearance normal, both eyes and all related structures Pupils: Equal, round and reactive pupils present Neck: Neck: normal visual inspection and full ROM Chest: Breast/axilla inspection: normal inspection of the axillae Breast/axilla palpation: normal palpation of the axillae Chest/axillae images:  1. Small linear area of skin thickening right at the inferior edge of the aerola that is tender and appears to possibly be where his scar is from the previous breast surgery. No obvious palpable mass, no nipple drainage or nipple abnormalities or inversion, no erythema. There is mild tenderness to this area. Resp: Effort & Inspection: no respiratory distress Auscultation: clear to auscultation bilaterally Cardio: Rate: bradycardic Rhythm: regular rhythm GI: Inspection: non-distended GI Palp: Yes Soft to palpation, No Tenderness to palpation present (GI), No Guarding due to palpation present (GI) and No Rebound tenderness present Auscultation: normal bowel sounds Skin: General skin exam: normal color Neuro: General: moves all extremities and no focal motor deficits Speech: normal speech Motor exam (neuro): 5/5 motor strength present throughout Extrem: General: normal to inspection and no edema Psych: Mental Status: mental status grossly normal Attitude: cooperative Insight: Good insight present (Psych) Judgement: Good judgement present (Psych) Results Labs 01/17/24 06:36 01/17/24 06:36 Labs: Abnormal lab results 01/16/24 01/17/24 Range/Units 20:00 06:36 Hgb 13.5 L (14.0-18.0) g/dL Plt Count 135 L (150-375) k/mm3 MPV 12.7 H (7.4-10.4) fl Baso % (Auto) 1.3 H (0.2-1.2) % Chloride 108 H (98-107) mmol/L Anion Gap 3 L (4-12) mmol/L POC Capillary Glucose 117 H (65-105) mg/dl Diabetes panel 01/17/24 Range/Units 06:36 Sodium 141 (137-145) mmol/L Potassium 3.9 (3.4-5.0) mmol/L Chloride 108 H (98-107) mmol/L Carbon Dioxide 30 (22-30) mmol/L BUN 12 (9-20) mg/dL Creatinine 1.20 (0.7-1.3) mg/dL Glucose 87 (65-110) mg/dL Calcium 9.0 (8.4-10.2) mg/dL AST 36 (17-59) U/L ALT 24 (6-50) U/L Alkaline Phosphatase 57 (38-126) U/L Total Protein 7.0 (6.3-8.2) g/dL Albumin 3.9 (3.5-5.1) g/dL Calcium panel 01/17/24 Range/Units 06:36 Calcium 9.0 (8.4-10.2) mg/dL Albumin 3.9 (3.5-5.1) g/dL Pituitary panel 01/17/24 Range/Units 06:36 Sodium 141 (137-145) mmol/L Potassium 3.9 (3.4-5.0) mmol/L Chloride 108 H (98-107) mmol/L Carbon Dioxide 30 (22-30) mmol/L BUN 12 (9-20) mg/dL Creatinine 1.20 (0.7-1.3) mg/dL Glucose 87 (65-110) mg/dL Calcium 9.0 (8.4-10.2) mg/dL Adrenal panel 01/17/24 Range/Units 06:36 Sodium 141 (137-145) mmol/L Potassium 3.9 (3.4-5.0) mmol/L Chloride 108 H (98-107) mmol/L Carbon Dioxide 30 (22-30) mmol/L BUN 12 (9-20) mg/dL Creatinine 1.20 (0.7-1.3) mg/dL Glucose 87 (65-110) mg/dL Calcium 9.0 (8.4-10.2) mg/dL Total Bilirubin 0.8 (0.2-1.3) mg/dL AST 36 (17-59) U/L ALT 24 (6-50) U/L Alkaline Phosphatase 57 (38-126) U/L Total Protein 7.0 (6.3-8.2) g/dL Albumin 3.9 (3.5-5.1) g/dL All other labs normal. Imaging Additional studies: ITS Impressions Chest X-Ray 01/16/24 10:15 IMPRESSION: No acute cardiopulmonary pathology. Head CT 01/16/24 10:46 IMPRESSION: No acute intracranial findings. Breast Ultrasound 01/17/24 08:02 Impression: 1: Ill-defined shadowing of the right breast inferiorly without discrete mass. Correlation with diagnostic right mammogram recommended. BI-RADS CATEGORY 0 - INCOMPLETE STUDY, NEED ADDITIONAL IMAGING EVALUATION.
[2024-01-17 11:58] LABS: Glucose Point of Care 77 mg/dl (65-105)
[2024-01-17 12:00] VITALS: BP 136/51; PULSE 42; PULSE 44; RESP 18; TEMP 36.3; O2SAT 98
--- NOTE | 2024-01-17 13:16 | P.PNNEUR_ITS ---
Progress Note: A&P Assessment and Plan (1) Vertigo: Code(s): R42 - Dizziness and giddiness Status: Acute Assessment and Plan: in addition he also has complaints of tinnitus, bilateral hearing loss and a muscle contraction type headache. He is unable to undergo MRI since there is some metal in the head which were identified while and attempts were being made to do an MRI. In view of the history of diet mellitus a possible brainstem ischemic attack should be considered and hence and CT angiogram head and neck is recommended. Symptomatic treatment and vestibular exercises would be offered if the CT angiogram did not show any abnormality. Symptomatic treatment may include drugs such as nortriptyline 25 mg at bedtime and vestibular exercises through physical therapy department. I shall be glad to follow up in my office with the results. I have given him my phone number to contact if necessary. (2) Pain of right breast: Code(s): N64.4 - Mastodynia Status: Acute Assessment and Plan: This is being evaluated by surgery. He has had a surgery for a lump in the right breast which continues to have some discomfort in this area. (3) Bradycardia, severe sinus: Code(s): R00.1 - Bradycardia, unspecified Status: Acute Subjective Date/time seen: 01/17/24 13:16 Interval history: 68-year-old presented with complaints of dizziness or sense of rotation which is describes as being severe but is now improving. He also has had pain in the right chest for last 1 year for which he is being evaluated by General surgery. There is history of diabetes mellitus. He has had symptoms of dizziness on and off in the last 1 year but in the past he used to be short-lived. He also has loss of hearing and tinnitus on both sides. He has sense of imbalance that he attributes to having above symptoms. The patient lives his . He does not smoke but drinks alcohol occasionally. He is retired now. He that he always have some headache for several years. Headaches a generalized. He has not had any fall or injuries. The dizziness can occur while turning even in the bed or getting out of the bed or looking sideways upper down. No diplopia or difficulty speech or swallowing. No weakness in upper lower limbs. He is able to walk independently without any support. No passing out spells. Review of Systems Constitutional: Constitutional: Denies chills, Denies fever(s) and Denies weight loss Eyes: Eyes: Denies diplopia and Denies loss of vision ENT: Reports dizziness, Reports hearing loss and Reports tinnitus Cardiovascular: Cardiovascular: Reports chest pain ( Right chest pain since surgery for tumor in right breast), Denies syncope and Denies dyspnea Respiratory: Respiratory: Denies cough, Denies dyspnea and Denies wheezing Gastrointestinal: Gastrointestinal: Denies abdominal pain, Denies change in bowel habits and Denies vomiting Genitourinary: Genitourinary: Denies urinary incontinence Musculoskeletal: Musculoskeletal: Denies arthralgias and Denies joint swelling Integumentary/Breasts: Skin/Breast: Denies new lesions and Denies rash Neurologic: Reports as per HPI, Reports dizziness, Denies syncope and Denies loss of vision Psychiatric: Psychiatric: Denies anxiety and Denies depression Endocrine: Endocrine: Denies cold intolerance and Denies heat intolerance Hematologic/Lymphatic: Hematologic/Lymphatic: Denies easy bleeding and Denies easy bruising Allergic/Immunologic: Allergic/Immunologic: Denies no additional allergic/immunologic complaints and Denies wheezing Exam Const: General: no acute distress Orientation/consciousness: oriented to person, oriented to place and oriented to time HENMT: Head: normocephalic and atraumatic Ears: hearing grossly normal bilaterally and external ears normal Face/Nose/Sinus: Normal external nose present Mouth: Yes Normal oral and palatal mucosa present Eyes: General: appearance normal, both eyes and all related structures Eyelids: eyelids normal Conjunctivae: conjunctivae normal Pupils: Equal, round and reactive pupils present EOM: EOMs intact bilaterally and No Nystagmus present Neck: Neck: normal visual inspection Resp: Effort & Inspection: normal respiratory effort Cardio: Rate: regular rate Rhythm: regular rhythm Heart sounds: Murmur heart sound present systolic Other: systolic murmur radiates to both carotid arteries Skin: General skin exam: normal color Neuro: General: oriented to person, oriented to place and oriented to time Cranial nerves: Yes CN's II-XII intact bilaterally, Yes Equal, round and reactive pupils present, Yes Bilaterally intact EOM present, Yes Nystagmus not present, Yes Normal facial strength present, Yes facial symmetry, Yes Midline tongue present, Yes Symmetric palate elevation present, Yes Normal hearing present, Yes Ability to bilaterally elevate shoulders present and No Nystagmus present Speech: normal speech Motor exam (neuro): 5/5 motor strength present throughout, Normal motor muscle tone present throughout and Motor abnormalities not present Sensory Exam: normal sensation Deep tendon reflexes (DTR's): Right triceps reflex intensity grade: 0, Left triceps reflex intensity grade: 0, Rt Biceps (C5, C6): 0, Left biceps reflex intensity grade: 0, Right brachioradialis reflex intensity grade: 0, Left brachioradialis reflex intensity grade: 0, Right patellar reflex intensity grade: 0, Left patellar reflex intensity grade: 0, Right ankle reflex intensity grade: 0 and Left ankle reflex intensity grade: 0 Coordination: [id number] test normal Extrem: General: normal to inspection Psych: Appearance: grossly normal Mental Status: mental status grossly n ormal Affect: normal affect Attitude: cooperative Objective Data Vital Signs Vital Signs: Vital Signs - 24 hr 01/16/24 13:30 01/16/24 14:30 01/16/24 15:30 Temperature Pulse Rate 46 L 47 L 58 L Respiratory Rate 18 18 16 Blood Pressure 117/53 L 125/68 129/83 Pulse Oximetry 99 98 98 Oxygen Delivery 01/16/24 16:30 01/16/24 18:08 01/16/24 20:00 Temperature 97.0 F L Pulse Rate 43 L 40 L 75 Respiratory Rate 16 16 16 Blood Pressure 116/70 134/60 117/51 L Pulse Oximetry 96 98 100 Oxygen Delivery 01/16/24 20:00 01/16/24 20:00 01/17/24 00:00 Temperature Pulse Rate 42 L 55 L Respiratory Rate Blood Pressure Pulse Oximetry Oxygen Delivery Room Air 01/17/24 00:00 01/17/24 04:00 01/17/24 04:00 Temperature 97.4 F L 97.4 F L Pulse Rate 40 L 41 L 42 L Respiratory Rate 20 20 Blood Pressure 110/60 123/59 L Pulse Oximetry 97 100 Oxygen Delivery 01/17/24 08:00 01/17/24 08:00 01/17/24 08:00 Temperature 96.7 F L Pulse Rate 42 L 40 L Respiratory Rate 16 Blood Pressure 135/58 L Pulse Oximetry 94 Oxygen Delivery Room Air 01/17/24 12:00 Temperature 97.4 F L Pulse Rate 44 L Respiratory Rate 18 Blood Pressure 136/51 L Pulse Oximetry 98 Oxygen Delivery Intake/Output Intake/Output: Intake & Output 01/14/24 01/15/24 01/16/2412/24 23:59 23:59 23:59 23:59 Intake Total 200 Balance 200 Meds/Results Medications: Active Medications Generic Name Dose Route Start Last Admin Trade Name Tyshawn PRN Reason Stop Dose Admin Acetaminophen 650 mg 01/16/24 15:58 Acetaminophen 325 Mg Tablet PO Q4H PRN Mild Pain (1-3) or Fever Aspirin 81 mg 01/17/24 08:00 Aspirin 81 Mg Chewable Tablet PO DAILY@0800 [facility] Dextrose 12.5 gm 01/16/24 17:17 Dextrose 50% 25 Gm/50 Ml Syringe IV PUSH PRN PRN Hypoglycemia Protocol Glucagon 1 mg 01/16/24 17:17 Glucagon For Inj 1 Mg Vial IM PRN PRN Hypoglycemia Protocol Glucose 15 gm 01/16/24 17:17 Glucose Oral Gel 15 Gm Of Glucse In 37.5 Gm Tube PO PRN PRN Hypoglycemia Protocol Dextrose 1,000 mls @ 100 mls/hr 01/16/24 17:17 Dextrose 5% 1,000 Ml IVPB PRN PRN Hypoglycemia Protocol Insulin Aspart 2 - 5 units 01/17/24 08:00 01/17/24 09:21 Insulin Aspart (*Bkc) 100 Units/Ml SUB-Q Not Given TIDWM [facility] Protocol Meclizine HCl 12.5 mg 01/16/24 23:24 01/16/24 23:56 Meclizine Hcl 12.5 Mg Tablet PO 12.5 mg QID PRN Administration Dizziness Perflutren Lipid Microsphere 0 ml 01/16/24 17:07 Perflutren Lipid Microspheres 1.5 Ml Vial Diluted To 10 Ml Total Volume IV PUSH 01/19/24 17:07 ONCE PRN adequate visualization Protocol Radiology Results: ITS Impressions Chest X-Ray 01/16/24 10:15 IMPRESSION: No acute cardiopulmonary pathology. Head CT 01/16/24 10:46 IMPRESSION: No acute intracranial findings. Breast Ultrasound 01/17/24 08:02 Impression: 1: Ill-defined shadowing of the right breast inferiorly without discrete mass. Correlation with diagnostic right mammogram recommended. BI-RADS CATEGORY 0 - INCOMPLETE STUDY, NEED ADDITIONAL IMAGING EVALUATION. Labs Labs: Laboratory Results - last 24 hr 01/16/24 01/16/24 01/16/24 12:57 16:47 20:00 WBC RBC Hgb Hct MCV MCH MCHC RDW Plt Count MPV Immature Gran % (Auto) Neut % (Auto) Lymph % (Auto) [place] % (Auto) Eos % (Auto) Baso % (Auto) Lymph # (Auto) [place] # (Auto) Eos # (Auto) Baso # (Auto) Abs Immat Gran (auto) Absolute Neuts (auto) Absolute Nucleated RBC Nucleated RBC % Sodium Potassium Chloride Carbon Dioxide Anion Gap BUN Creatinine Estim Creat Clear Calc Estimated GFR Glucose POC Capillary Glucose 117 H Calcium Magnesium Total Bilirubin AST ALT Alkaline Phosphatase Troponin I < 0.012 D 0.015 D Total Protein Albumin 01/17/24 01/17/24 01/17/24 06:36 07:49 11:55 WBC 4.7 RBC 4.86 Hgb 13.5 L Hct 42.1 MCV 86.6 MCH 27.8 MCHC 32.1 RDW 13.9 Plt Count 135 L MPV 12.7 H Immature Gran % (Auto) 0.2 Neut % (Auto) 49.8 Lymph % (Auto) 38.7 [place] % (Auto) 6.6 Eos % (Auto) 3.4 Baso % (Auto) 1.3 H Lymph # (Auto) 1.83 [place] # (Auto) 0.3 Eos # (Auto) 0.2 Baso # (Auto) 0.1 Abs Immat Gran (auto) 0.01 Absolute Neuts (auto) 2.4 Absolute Nucleated RBC 0.000 Nucleated RBC % 0.0 Sodium 141 Potassium 3.9 Chloride 108 H Carbon Dioxide 30 Anion Gap 3 L BUN 12 Creatinine 1.20 Estim Creat Clear Calc 56 Estimated GFR > 60 Glucose 87 POC Capillary Glucose 96 77 Calcium 9.0 Magnesium 2.2 Total Bilirubin 0.8 AST 36 ALT 24 Alkaline Phosphatase 57 Troponin I Total Protein 7.0 Albumin 3.9
--- NOTE | 2024-01-17 13:18 | P.CONCA_ITS ---
Assessment and Plan Assessment and plan (1) Bradycardia, severe sinus: Code(s): R00.1 - Bradycardia, unspecified Status: Acute Plan 1. Sinus bradycardia -none no pauses or AV blocks noted on telemetry -denies any history of lightheadedness, dizziness, palpitation, presyncope or syncope in the past. This episode of dizziness started 2 days ago which is more apparent on opening his eyes and the neck movements -avoid any AV reshma blocking agents -no indication for a pacemaker for now -will do a treadmill test to assess chronotropic competence. He says he will be able to do it tomorrow many feels much better -consider discharging home on an event monitor History of Present Illness History of Present Illness Consult date/time: 01/17/24 13:18 Requesting physician: Hetal Devlin MD Reason For Visit: Vertigo, chest pain Narrative: 68-year-old male past medical history of the type 2 diabetes hypertension hyperlipidemia, history of right breast lump status post lumpectomy presented to the ER on account of dizziness and Right breast pain. Cardiology consulted for sinus bradycardia As per the patient that he started having episodes of what appears to be vertigo in which he describes as room spinning specially on opening his eyes and on head movement. It is better now and he can open his eyes And denied any lightheadedness, any chest pain or shortness of breath There were no similar prior episodes He denies any palpitation, dizziness, lightheadedness, presyncope syncope He does feel tired, especially after moderate to severe exertional activity Denies any prior CAD, CVA or VA Does not seem to be on any AV reshma agents Negative troponin EKG shows sinus bradycardia Echocardiogram pending Review of Systems 2 Review of Systems: All other systems reviewed and negative except as in the history above. All systems reviewed & are unremarkable except as noted in HPI and below [facility] History Surgical History History of reduction surgery of right breast Social History Social History Second hand tobacco smoke exposure: No Alcohol intake: former Substance use: never Do You Feel Safe in your Home?: Yes Lack of Transportation: No Lack of Food: Never True Current Housing: I Have Housing Concerned About Future Housing: No Difficulty Paying Gas/Electric Bills: No Difficulty Paying for Meds: No Currently Unemployed: No Education: High School Diploma/GED Difficulty w/ Childcare or Family Care: No Spiritual care concerns: No Meds Home Medications and Allergies Home Medications ?Medication ?Instructions ?Recorded ?Confirmed ?Type amlodipine 10 mg tablet 10 mg PO DAILY 01/16/24 01/16/24 History celecoxib 100 mg capsule 100 mg PO Q24H 01/16/24 01/16/24 History cetirizine 10 mg tablet 10 mg PO DAILY 01/16/24 01/16/24 History hydrochlorothiazide 12.5 mg capsule 12.5 mg PO DAILY 01/16/24 01/16/24 History metformin 500 mg tablet,extended 500 mg PO DAILY 01/16/24 01/16/24 History release 24 hr rosuvastatin 20 mg tablet 20 mg PO HS 01/16/24 01/16/24 History spironolactone 25 mg tablet 25 mg PO DAILY 01/16/24 01/16/24 History Allergies Allergy/AdvReac Type Severity Reaction Status Date / Time lisinopril Allergy Severe angioedema Verified 01/16/24 21:57 Vital Signs Vital Signs - 24 hr 01/16/24 13:30 01/16/24 14:30 01/16/24 15:30 Temperature Pulse Rate 46 L 47 L 58 L Respiratory Rate 18 18 16 Blood Pressure 117/53 L 125/68 129/83 Pulse Oximetry 99 98 98 Oxygen Delivery 01/16/24 16:30 01/16/24 18:08 01/16/24 20:00 Temperature 36.1 C L Pulse Rate 43 L 40 L 75 Respiratory Rate 16 16 16 Blood Pressure 116/70 134/60 117/51 L Pulse Oximetry 96 98 100 Oxygen Delivery 01/16/24 20:00 01/16/24 20:00 01/17/24 00:00 Temperature Pulse Rate 42 L 55 L Respiratory Rate Blood Pressure Pulse Oximetry Oxygen Delivery Room Air 01/17/24 00:00 01/17/24 04:00 01/17/24 04:00 Temperature 36.3 C L 36.3 C L Pulse Rate 40 L 41 L 42 L Respiratory Rate 20 20 Blood Pressure 110/60 123/59 L Pulse Oximetry 97 100 Oxygen Delivery 01/17/24 08:00 01/17/24 08:00 01/17/24 08:00 Temperature 35.9 C L Pulse Rate 42 L 40 L Respiratory Rate 16 Blood Pressure 135/58 L Pulse Oximetry 94 Oxygen Delivery Room Air 01/17/24 12:00 Temperature 36.3 C L Pulse Rate 44 L Respiratory Rate 18 Blood Pressure 136/51 L Pulse Oximetry 98 Oxygen Delivery Exam 2 Narrative: General: alert and comfortable Eyes: EOMI, PERRLA ENNT External ears normal, Neck is supple, no masses, Respiratory systems: Clear to auscultation Cardiovascular S1, S2, normal rhythm, no murmur, rub, or gallop; no thrill or palpable murmurs on palpation. Gastrointestinal: soft, non-tender, and non-distended abdomen with no masses; BS present Skin: no rash, lesions, ulcerations, subcutaneous nodules or induration Musculoskeletal: right breast tenderness Neurologic: Alert and oriented x3, non focal Mental Status Exam: normal affect Const: General: comfortable, no acute distress and average body habitus N utritional Appearance: average body habitus Orientation/consciousness: p atient oriented x3 HENMT: Head: normocephalic and atraumatic Ears: hearing grossly normal bilaterally Mouth: Yes moist mucous membranes Eyes: General: appearance normal, both eyes and all related structures P upils: Equal, round and reactive pupils present Neck: Neck: normal visual inspection and full ROM Chest: Breast/axilla inspection: normal inspection of the axillae B reast/axilla palpation: normal palpation of the axillae Resp: Effort & Inspection: no respiratory distress Auscultation: clear to auscultation bilaterally Cardio: Rate: bradycardic Rhythm: regular rhythm GI: Inspection: non-distended Auscultation: normal bowel sounds Skin: General skin exam: normal color Neuro: General: patient oriented x3, moves all extremities and no focal motor deficits Cranial nerves: Yes Equal, round and reactive pupils present S peech: normal speech Motor exam (neuro): 5/5 motor strength present throughout Extrem: General: normal to inspection and no edema Psych: Mental Status: mental status grossly normal Attitude: cooperative Insight: Good insight present (Psych) Judgement: Good judgement present (Psych) Results Labs and Meds 01/17/24 06:36 01/17/24 06:36 Lab results: Cardiac Enzymes 01/16/24 01/16/2424 Range/Units 12:57 16:47 06:36 AST 36 (17-59) U/L Troponin I < 0.012 D 0.015 D (0.000-0.034) ng/mL CBC 01/17/24 Range/Units 06:36 WBC 4.7 (4.5-10.0) K/mm3 RBC 4.86 (4.6-6.20) M/mm3 Hgb 13.5 L (14.0-18.0) g/dL Hct 42.1 (42.0-52.0) % Plt Count 135 L (150-375) k/mm3 Lymph # (Auto) 1.83 (0.9-3.2) K/mm3 [place] # (Auto) 0.3 (0.1-0.6) K/mm3 Eos # (Auto) 0.2 (0-0.3) K/mm3 Baso # (Auto) 0.1 (0.0-0.1) K/mm3 Comprehensive Metabolic Panel 01/17/24 Range/Units 06:36 Sodium 141 (137-145) mmol/L Potassium 3.9 (3.4-5.0) mmol/L Chloride 108 H (98-107) mmol/L Carbon Dioxide 30 (22-30) mmol/L BUN 12 (9-20) mg/dL Creatinine 1.20 (0.7-1.3) mg/dL Glucose 87 (65-110) mg/dL Calcium 9.0 (8.4-10.2) mg/dL AST 36 (17-59) U/L ALT 24 (6-50) U/L Alkaline Phosphatase 57 (38-126) U/L Total Protein 7.0 (6.3-8.2) g/dL Albumin 3.9 (3.5-5.1) g/dL Intake and Output 01/16/24 01/17/24 01/17/24 23:59 07:59 15:59 Intake Total 200 Balance 200 Intake: Oral 200 Other: # Unmeasured Voids 1
--- NOTE | 2024-01-17 13:26 | P.CONNEU_ITS ---
Assessment and Plan Assessment and plan (1) Vertigo: Code(s): R42 - Dizziness and giddiness Status: Acute Assessment and Plan: the differential diagnosis would include possibility of a peripheral vessel pathology versus brainstem ischemia in view of the history of diabetes mellitus. He is unable to go MRI of brain and hence I will suggest a CT angiogram head and neck. This does not show any significant abnormal findings he may be referred to vestibular therapy. Symptomatic treatment for headache with nortriptyline 25 mg HS could be a consideration. I shall be glad to see him the office for follow-up evaluation. (2) Bradycardia, severe sinus: Code(s): R00.1 - Bradycardia, unspecified Status: Acute (3) Chest pain at rest: Code(s): R07.9 - Chest pain, unspecified Status: Acute Consult date: 01/17/24 HPI: Jaden Hamilton is a 68 year old male A presented to the hospital with the attack of dizziness or vertigo which lasted for several hours and after that he has improved. He also has pain in the right chest wall area however this started after he had a surgery for lump in the right breast about a year ago. This is being evaluated by surgery. He was also found to have a low heart rate around 42 which responded to atropine and it improved to 72. CT scan of brain did not show any abnormality. He also has history of diabetes mellitus. He also complains of tinnitus and a some hearing loss and less sense of imbalance. He also has some sinus problems. Patient is a retired and lives his . He does not smoke. He also has frequent headaches and he has had headaches for last several years. He denies any diplopia or any weakness in upper lower limbs. He denies any difficulty speech or swallowing. Review of Systems 2 Constitutional: Constitutional: Denies chills, Denies fever(s) and Denies weight loss Eyes: Eyes: Denies diplopia and Denies loss of vision ENT: Reports dizziness, Reports hearing loss and Reports tinnitus Cardiovascular: Cardiovascular: Reports chest pain, Denies syncope and Denies dyspnea Respiratory: Respiratory: Denies cough, Denies dyspnea and Denies wheezing Gastrointestinal: Gastrointestinal: Denies abdominal pain, Denies change in bowel habits and Denies vomiting Genitourinary: Genitourinary: Denies urinary incontinence Musculoskeletal: Musculoskeletal: Denies arthralgias and Denies joint swelling Integumentary/Breasts: Skin/Breast: Denies new lesions and Denies rash Neurologic: Reports as per HPI, Reports dizziness, Denies syncope and Denies loss of vision Psychiatric: Psychiatric: Denies anxiety and Denies depression Endocrine: Endocrine: Denies cold intolerance and Denies heat intolerance Hematologic/Lymphatic: Hematologic/Lymphatic: Denies easy bleeding and Denies easy bruising Allergic/Immunologic: Allergic/Immunologic: Denies no additional allergic/immunologic complaints and Denies wheezing PMFSH Surgical History Surgical History History of reduction surgery of right breast Social History Social History Second hand tobacco smoke exposure: No Alcohol intake: former Substance use: never Do You Feel Safe in your Home?: Yes Lack of Transportation: No Lack of Food: Never True Current Housing: I Have Housing Concerned About Future Housing: No Difficulty Paying Gas/Electric Bills: No Difficulty Paying for Meds: No Currently Unemployed: No Education: High School Diploma/GED Difficulty w/ Childcare or Family Care: No Spiritual care concerns: No Meds Home Medications and Allergies Home Medications ?Medication ?Instructions ?Recorded ?Confirmed ?Type amlodipine 10 mg tablet 10 mg PO DAILY 01/16/24 01/16/24 History celecoxib 100 mg capsule 100 mg PO Q24H 01/16/24 01/16/24 History cetirizine 10 mg tablet 10 mg PO DAILY 01/16/24 01/16/24 History hydrochlorothiazide 12.5 mg capsule 12.5 mg PO DAILY 01/16/24 01/16/24 History metformin 500 mg tablet,extended 500 mg PO DAILY 01/16/24 01/16/24 History release 24 hr rosuvastatin 20 mg tablet 20 mg PO HS 01/16/24 01/16/24 History spironolactone 25 mg tablet 25 mg PO DAILY 01/16/24 01/16/24 History Allergies Allergy/AdvReac Type Severity Reaction Status Date / Time lisinopril Allergy Severe angioedema Verified 01/16/24 21:57 Vital Signs Vital Signs - 24 hr 01/16/24 13:30 01/16/24 14:30 01/16/24 15:30 Temperature Pulse Rate 46 L 47 L 58 L Respiratory Rate 18 18 16 Blood Pressure 117/53 L 125/68 129/83 Pulse Oximetry 99 98 98 Oxygen Delivery 01/16/24 16:30 01/16/24 18:08 01/16/24 20:00 Temperature 97.0 F L Pulse Rate 43 L 40 L 75 Respiratory Rate 16 16 16 Blood Pressure 116/70 134/60 117/51 L Pulse Oximetry 96 98 100 Oxygen Delivery 01/16/24 20:00 01/16/24 20:00 01/17/24 00:00 Temperature Pulse Rate 42 L 55 L Respiratory Rate Blood Pressure Pulse Oximetry Oxygen Delivery Room Air 01/17/24 00:00 01/17/24 04:00 01/17/24 04:00 Temperature 97.4 F L 97.4 F L Pulse Rate 40 L 41 L 42 L Respiratory Rate 20 20 Blood Pressure 110/60 123/59 L Pulse Oximetry 97 100 Oxygen Delivery 01/17/24 08:00 01/17/24 08:00 01/17/24 08:00 Temperature 96.7 F L Pulse Rate 42 L 40 L Respiratory Rate 16 Blood Pressure 135/58 L Pulse Oximetry 94 Oxygen Delivery Room Air 01/17/24 12:00 Temperature 97.4 F L Pulse Rate 44 L Respiratory Rate 18 Blood Pressure 136/51 L Pulse Oximetry 98 Oxygen Delivery Exam 2 Const: General: no acute distress Orientation/consciousness: oriented to person, oriented to place and oriented to time HENMT: Head: normocephalic and atraumatic Ears: hearing grossly normal bilaterally and external ears normal Face/Nose/Sinus: Normal external nose present Mouth: Yes Normal oral and palatal mucosa present Eyes: General: appearance normal, both eyes and all related structures E yelids: eyelids normal Conjunctivae: conjunctivae normal Pupils: Equal, round and reactive pupils present EOM: No Nystagmus present Neck: Neck: normal visual inspection Resp: Effort & Inspection: normal respiratory effort Cardio: Heart sounds: Murmur heart sound present systolic Other: Systolic murmur radiates to both carotid arteries Skin: General skin exam: normal color Neuro: General: oriented to person, oriented to place and oriented to time Cranial nerves: Yes CN's II-XII intact bilaterally, Yes Equal, round and reactive pupils present, Yes Bilaterally intact EOM present, Yes Nystagmus not present, Yes Normal facial strength present, Yes facial symmetry, Yes Midline tongue present, Yes Symmetric palate elevation present, Yes Normal hearing present, Yes Ability to bilaterally elevate shoulders present and No Nystagmus present Speech: normal speech Gait exam (Neuro): Normal gait present M otor exam (neuro): 5/5 motor strength present throughout, Normal motor muscle tone present throughout and Motor abnormalities not present Sensory Exam: n ormal sensation Deep tendon reflexes (DTR's): Right triceps reflex intensity grade: 0, Left triceps reflex intensity grade: 0, Rt Biceps (C5, C6): 0, Left biceps reflex intensity grade: 0, Right brachioradialis reflex intensity grade: 0, Left brachioradialis reflex intensity grade: 0, Right patellar reflex intensity grade: 0, Left patellar reflex intensity grade: 0, Right ankle reflex intensity grade: 0 and Left ankle reflex intensity grade: 0 Coordination: f [id number] test normal Extrem: General: normal to inspection Psych: Appearance: grossly normal Mental Status: mental status grossly normal Affect: normal affect Attitude: cooperative Results Labs 01/17/24 06:36 01/17/24 06:36 Labs: Short CBC 01/17/24 Range/Units 06:36 WBC 4.7 (4.5-10.0) K/mm3 Hgb 13.5 L (14.0-18.0) g/dL Hct 42.1 (42.0-52.0) % Plt Count 135 L (150-375) k/mm3 [facility] 01/17/24 06:36 Sodium 141 Potassium 3.9 Chloride 108 H Carbon Dioxide 30 BUN 12 Creatinine 1.20 Glucose 87 Calcium 9.0 Cardiac Enzymes 01/16/24 01/16/24 Range/Units 12:57 16:47 Troponin I < 0.012 D 0.015 D (0.000-0.034) ng/mL Liver Function 01/17/24 Range/Units 06:36 Total Bilirubin 0.8 (0.2-1.3) mg/dL AST 36 (17-59) U/L ALT 24 (6-50) U/L Alkaline Phosphatase 57 (38-126) U/L Albumin 3.9 (3.5-5.1) g/dL
--- NOTE | 2024-01-17 13:44 | PM.IMPN ---
Progress Note: A&P Assessment and Plan (1) Bradycardia, severe sinus: Code(s): R00.1 - Bradycardia, unspecified Status: Acute (2) Vertigo: Code(s): R42 - Dizziness and giddiness Status: Acute Plan Vertigo Patient presented with dizziness worse with movement especially head movement CT head unremarkable MRI brain botched as patient was found to have a metal in his face which he ws not aware of CTA head wiith carotids ordered instead PT/OT consulted Neurology following continue Meclizine for now Possible Sinus Bradycardia EKG showed sinus bradycardia Patient received Atropine which improved HR to 70s. ECHO pending, troponin negative For stress test tomorrow Cardiology consulted Right breast pain tenderness on palpation Ultrasound Ill-defined shadowing of the right breast inferiorly without discrete mass. Correlation with diagnostic right mammogram recommended. outpatient mammogram GEn surgery consulted DM2 SSi with accucheks monitor HTN titrate home meds with clinical course HLD continue Statin DVT prophylaxis on Sq Lovenox Full code Surrogate decision maker randhawa pradip Subjective Date/time seen: 01/17/24 13:44 Interval history: Patient comfortable at bedside Unable to do MRI as it was found patient has a metal in face, however patient stated he never had any facial surgery surgeries and not memory of metal insertion or placement in his body CTA brain and carotids pending. Cardiology evaluated and noted stress test in the morning. Review of Systems Review of Systems: All other systems reviewed and negative except as in the history above. Exam Narrative: General: alert and comfortable Eyes: EOMI, PERRLA ENNT External ears normal, Neck is supple, no masses, Respiratory systems: Clear to auscultation Cardiovascular S1, S2, normal rhythm, no murmur, rub, or gallop; no thrill or palpable murmurs on palpation. Gastrointestinal: soft, non-tender, and non-distended abdomen with no masses; BS present Skin: no rash, lesions, ulcerations, subcutaneous nodules or induration Musculoskeletal: right breast tenderness Neurologic: Alert and oriented x3, non focal Mental Status Exam: normal affect Objective Data Vital Signs Vital Signs: Vital Signs - 24 hr 01/16/24 14:30 01/16/24 15:30 01/16/24 16:30 Temperature Pulse Rate 47 L 58 L 43 L Respiratory Rate 18 16 16 Blood Pressure 125/68 129/83 116/70 Pulse Oximetry 98 98 96 Oxygen Delivery 01/16/24 18:08 01/16/24 20:00 01/16/24 20:00 Temperature 97.0 F L Pulse Rate 40 L 75 42 L Respiratory Rate 16 16 Blood Pressure 134/60 117/51 L Pulse Oximetry 98 100 Oxygen Delivery 01/16/24 20:00 01/17/24 00:00 01/17/24 00:00 Temperature 97.4 F L Pulse Rate 55 L 40 L Respiratory Rate 20 Blood Pressure 110/60 Pulse Oximetry 97 Oxygen Delivery Room Air 01/17/24 04:00 01/17/24 04:00 01/17/24 08:00 Temperature 97.4 F L 96.7 F L Pulse Rate 41 L 42 L 42 L Respiratory Rate 20 16 Blood Pressure 123/59 L 135/58 L Pulse Oximetry 100 94 Oxygen Delivery 01/17/24 08:00 01/17/24 08:00 01/17/24 12:00 Temperature 97.4 F L Pulse Rate 40 L 44 L Respiratory Rate 18 Blood Pressure 136/51 L Pulse Oximetry 98 Oxygen Delivery Room Air Intake/Output Intake/Output: Intake & Output 01/14/24 01/15/24 01/16/24 01/17/24 23:59 23:59 23:59 23:59 Intake Total 200 Balance 200 Meds/Results Medications: Active Medications Generic Name Dose Route Start Last Admin Trade Name Freq PRN Reason Stop Dose Admin Acetaminophen 650 mg 01/16/24 15:58 Acetaminophen 325 Mg Tablet PO Q4H PRN Mild Pain (1-3) or Fever Aspirin 81 mg 01/17/24 08:00 Aspirin 81 Mg Chewable Tablet PO DAILY@0800 [facility] Dextrose 12.5 gm 01/16/24 17:17 Dextrose 50% 25 Gm/50 Ml Syringe IV PUSH PRN PRN Hypoglycemia Protocol Glucagon 1 mg 01/16/24 17:17 Glucagon For Inj 1 Mg Vial IM PRN PRN Hypoglycemia Protocol Glucose 15 gm 01/16/24 17:17 Glucose Oral Gel 15 Gm Of Glucse In 37.5 Gm Tube PO PRN PRN Hypoglycemia Protocol Dextrose 1,000 mls @ 100 mls/hr 01/16/24 17:17 Dextrose 5% 1,000 Ml IVPB PRN PRN Hypoglycemia Protocol Insulin Aspart 2 - 5 units 01/17/24 08:00 01/17/24 09:21 Insulin Aspart (*Bkc) 100 Units/Ml SUB-Q Not Given TIDWM [facility] Protocol Meclizine HCl 12.5 mg 01/16/24 23:24 01/16/24 23:56 Meclizine Hcl 12.5 Mg Tablet PO 12.5 mg QID PRN Administration Dizziness Perflutren Lipid Microsphere 0 ml 01/16/24 17:07 Perflutren Lipid Microspheres 1.5 Ml Vial Diluted To 10 Ml Total Volume IV PUSH 01/19/24 17:07 ONCE PRN adequate visualization Protocol Radiology Results: ITS Impressions Chest X-Ray 01/16/24 10:15 IMPRESSION: No acute cardiopulmonary pathology. Head CT 01/16/24 10:46 IMPRESSION: No acute intracranial findings. Breast Ultrasound 01/17/24 08:02 Impression: 1: Ill-defined shadowing of the right breast inferiorly without discrete mass. Correlation with diagnostic right mammogram recommended. BI-RADS CATEGORY 0 - INCOMPLETE STUDY, NEED ADDITIONAL IMAGING EVALUATION. Labs Labs: Laboratory Results - last 24 hr 01/16/24 01/16/24 01/17/24 16:47 20:00 06:36 WBC 4.7 RBC 4.86 Hgb 13.5 L Hct 42.1 MCV 86.6 MCH 27.8 MCHC 32.1 RDW 13.9 Plt Count 135 L MPV 12.7 H Immature Gran % (Auto) 0.2 Neut % (Auto) 49.8 Lymph % (Auto) 38.7 [place] % (Auto) 6.6 Eos % (Auto) 3.4 Baso % (Auto) 1.3 H Lymph # (Auto) 1.83 [place] # (Auto) 0.3 Eos # (Auto) 0.2 Baso # (Auto) 0.1 Abs Immat Gran (auto) 0.01 Absolute Neuts (auto) 2.4 Absolute Nucleated RBC 0.000 Nucleated RBC % 0.0 Sodium 141 Potassium 3.9 Chloride 108 H Carbon Dioxide 30 Anion Gap 3 L BUN 12 Creatinine 1.20 Estim Creat Clear Calc 56 Estimated GFR > 60 Glucose 87 POC Capillary Glucose 117 H Calcium 9.0 Magnesium 2.2 Total Bilirubin 0.8 AST 36 ALT 24 Alkaline Phosphatase 57 Troponin I 0.015 D Total Protein 7.0 Albumin 3.9 01/17/24 01/17/24 07:49 11:55 WBC RBC Hgb Hct MCV MCH MCHC RDW Plt Count MPV Immature Gran % (Auto) Neut % (Auto) Lymph % (Auto) [place] % (Auto) Eos % (Auto) Baso % (Auto) Lymph # (Auto) [place] # (Auto) Eos # (Auto) Baso # (Auto) Abs Immat Gran (auto) Absolute Neuts (auto) Absolute Nucleated RBC Nucleated RBC % Sodium Potassium Chloride Carbon Dioxide Anion Gap BUN Creatinine Estim Creat Clear Calc Estimated GFR Glucose POC Capillary Glucose 96 77 Calcium Magnesium Total Bilirubin AST ALT Alkaline Phosphatase Troponin I Total Protein Albumin
[2024-01-17 16:00] VITALS: BP 132/48; PULSE 48; PULSE 53; RESP 16; TEMP 36.5; O2SAT 98
[2024-01-17 16:32] LABS: Glucose Point of Care 120 mg/dl (65-105)
[2024-01-17 20:00] VITALS: BP 136/56; PULSE 52; PULSE 94; RESP 14; TEMP 36.2; O2SAT 100
[2024-01-17] MEDS: MECLIZINE HCL 12.5 MG TABLET PO (20:42)
[2024-01-17] MEDS: ROSUVASTATIN 20 MG TABLET PO (20:42)
[2024-01-17 21:20] LABS: Glucose Point of Care 110 mg/dl (65-105)
[2024-01-18] VITALS (7 sets, daily range): BP systolic 124–172; BP diastolic 48–60; PULSE 38–67; RESP 10–12; TEMP 35.9–36.6; O2SAT 95–100
[2024-01-18 06:28] LABS: Alanine Aminotransferase 26 U/L (6-50); Alkaline Phosphatase 58 U/L (38-126); Anion Gap 4 mmol/L (4-12); Aspartate Amino Transferase 37 U/L (17-59); Bilirubin,Total 0.7 mg/dL (0.2-1.3); Blood Urea Nitrogen 14 mg/dL (9-20); Calcium 9.1 mg/dL (8.4-10.2); Carbon Dioxide 31 mmol/L (22-30); Chloride 107 mmol/L (98-107); Estimated CRCL calculation 56 ml/min; Estimated Glomerular Filt Rate > 60; Glucose 101 mg/dL (65-110); Magnesium 2.3 mg/dL (1.6-2.3); Potassium 4.1 mmol/L (3.4-5.0); Sodium 142 mmol/L (137-145)
[2024-01-18 06:46] LABS: Basophils Absolute Auto 0.1 K/mm3 (0.0-0.1); Basophils Percent Auto 1.6 % (0.2-1.2); Eosinophils Absolute Auto 0.2 K/mm3 (0-0.3); Eosinophils Percent Auto 4.2 % (0-4.4); Hematocrit 42.4 % (42.0-52.0); Hemoglobin 13.8 g/dL (14.0-18.0); Immature Granulocyte Absolute 0.01 K/mm3 (0.00-0.031); Immature Granulocyte Percent A 0.2 % (0-0.5); Lymphocytes Absolute Auto 1.45 K/mm3 (0.9-3.2); Lymphocytes Percent Auto 33.6 % (18.3-44.2); Mean Corpuscular HGB Conc 32.5 g/dl (32-36); Mean Platelet Volume 12.6 fl (7.4-10.4); Monocytes Absolute Auto 0.3 K/mm3 (0.1-0.6); Monocytes Percent Auto 6.3 % (2.6-8.5); Neutrophils Absolute Auto 2.3 K/mm3 (1.3-6.7); Neutrophils Percent Auto 54.1 % (45.5-73.1); Platelet Count Result 136 k/mm3 (150-375); Red Blood Count 4.93 M/mm3 (4.6-6.20); Red Cell Distribution Width 13.7 % (11.5-14.5); White Blood Count 4.3 K/mm3 (4.5-10.0)
[2024-01-18 07:51] LABS: Glucose Point of Care 97 mg/dl (65-105)
[2024-01-18] MEDS: SPIRONOLACTONE 25 MG TABLET PO (09:18)
[2024-01-18] MEDS: ACETAMINOPHEN 325 MG TABLET 650 MG PO (09:18)
[2024-01-18] MEDS: hydroCHLOROthiazide 12.5 MG CAPSULE PO (09:18)
[2024-01-18] MEDS: amLODIPine BESYLATE 10 MG TABLET PO (09:18)
[2024-01-18] MEDS: ASPIRIN 81 MG CHEWABLE TABLET PO (09:19)
--- NOTE | 2024-01-18 10:35 | PCPTNOTE ---
Attempted to see patient for PT, however patient was eating breakfast and unable to be seen at this time.
--- NOTE | 2024-01-18 13:27 | P.PNIM_ITS ---
Progress Note: A&P Assessment and Plan (1) Bradycardia, severe sinus: Code(s): R00.1 - Bradycardia, unspecified Status: Acute (2) Vertigo: Code(s): R42 - Dizziness and giddiness Status: Acute Plan Vertigo Patient presented with dizziness worse with movement especially head movement CT head unremarkable MRI brain botched as patient was found to have a metal in his face which he ws not aware of CTA head with carotids normal PT/OT consulted Neurology following continue Meclizine for now Possible Sinus Bradycardia EKG showed sinus bradycardia Patient received Atropine which improved HR to 70s. ECHO EF 63% , troponin negative For stress test Cardiology following Right breast pain tenderness on palpation Ultrasound Ill-defined shadowing of the right breast inferiorly without discrete mass. Correlation with diagnostic right mammogram recommended. outpatient mammogram GEn surgery consulted Headache CT head unremarkabel contineu PRN pain control DM2 SSi with accucheks monitor HTN titrate home meds with clinical course HLD continue Statin DVT prophylaxis on Sq Lovenox Full code Surrogate decision maker sydnee moseley Subjective Date/time seen: 01/18/24 13:27 Interval history: patient complained of headache this morning Review of Systems Review of Systems: All other systems reviewed and negative except as in the history above. Exam Narrative: General: alert and comfortable Eyes: EOMI, PERRLA ENNT External ears normal, Neck is supple, no masses, Respiratory systems: Clear to auscultation Cardiovascular S1, S2, normal rhythm, no murmur, rub, or gallop; no thrill or palpable murmurs on palpation. Gastrointestinal: soft, non-tender, and non-distended abdomen with no masses; BS present Skin: no rash, lesions, ulcerations, subcutaneous nodules or induration Musculoskeletal: right breast tenderness Neurologic: Alert and oriented x3, non focal Mental Status Exam: normal affect Objective Data Vital Signs Vital Signs: Vital Signs - 24 hr 01/17/24 15:36 01/17/24 16:00 01/17/24 16:00 Temperature 97.7 F Pulse Rate 48 L 53 L Respiratory Rate 16 Blood Pressure 132/48 L Pulse Oximetry 98 Oxygen Delivery Room Air 01/17/24 20:00 01/17/24 20:00 01/17/24 20:00 Temperature 97.2 F L Pulse Rate 94 94 52 L Respiratory Rate 14 14 Blood Pressure 136/56 L Pulse Oximetry 100 100 Oxygen Delivery Room Air 01/18/24 00:00 01/18/24 00:34 01/18/24 04:00 Temperature 96.8 F L 96.7 F L Pulse Rate 38 L 40 L 43 L Respiratory Rate 12 10 L Blood Pressure 142/53 H 172/59 H Pulse Oximetry 99 100 Oxygen Delivery 01/18/24 04:00 01/18/24 08:00 01/18/24 08:00 Temperature 97 F L Pulse Rate 42 L 56 L Respiratory Rate 10 L Blood Pressure 124/48 L Pulse Oximetry 95 Oxygen Delivery Room Air 01/18/24 08:00 01/18/24 11:07 01/18/24 11:33 Temperature 96.6 F L Pulse Rate 48 L 51 L Respiratory Rate 11 L Blood Pressure 141/60 H Pulse Oximetry 100 Oxygen Delivery Room Air Intake/Output Intake/Output: Intake & Output 01/15/24 01/16/24 01/17/24 01/18/24 23:59 23:59 23:59 23:59 Intake Total 1230 960 Output Total 100 600 Balance 1130 360 Meds/Results Medications: Active Medications Generic Name Dose Route Start Last Admin Trade Name Freq PRN Reason Stop Dose Admin Acetaminophen 650 mg 01/16/24 15:58 01/18/24 09:18 Acetaminophen 325 Mg Tablet PO 650 mg Q4H PRN Administration Mild Pain (1-3) or Fever Amlodipine Besylate 10 mg 01/18/24 09:00 01/18/24 09:18 Amlodipine Besylate 10 Mg Tablet PO 10 mg DAILY CARLOS Administration Aspirin 81 mg 01/17/24 08:00 01/18/24 09:19 Aspirin 81 Mg Chewable Tablet PO 81 mg DAILY@0800 CARLOS Administration Dextrose 12.5 gm 01/16/24 17:17 Dextrose 50% 25 Gm/50 Ml Syringe IV PUSH PRN PRN Hypoglycemia Protocol Glucagon 1 mg 01/16/24 17:17 Glucagon For Inj 1 Mg Vial IM PRN PRN Hypoglycemia Protocol Glucose 15 gm 01/16/24 17:17 Glucose Oral Gel 15 Gm Of Glucse In 37.5 Gm Tube PO PRN PRN Hypoglycemia Protocol Hydrochlorothiazide 12.5 mg 01/18/24 09:00 01/18/24 09:18 Hydrochlorothiazide 12.5 Mg Capsule PO 12.5 mg DAILY CARLOS Administration Dextrose 1,000 mls @ 100 mls/hr 01/16/24 17:17 Dextrose 5% 1,000 Ml IVPB PRN PRN Hypoglycemia Protocol Insulin Aspart 2 - 5 units 01/17/24 08:00 01/18/24 09:19 Insulin Aspart (*Bkc) 100 Units/Ml SUB-Q Not Given TIDWM CARLOS Protocol Meclizine HCl 12.5 mg 01/16/24 23:24 01/17/24 20:42 Meclizine Hcl 12.5 Mg Tablet PO 12.5 mg QID PRN Administration Dizziness Perflutren Lipid Microsphere 0 ml 01/16/24 17:07 Perflutren Lipid Microspheres 1.5 Ml Vial Diluted To 10 Ml Total Volume IV PUSH 01/19/24 17:07 ONCE PRN adequate visualization Protocol Rosuvastatin Calcium 20 mg 01/17/24 21:00 01/17/24 20:42 Rosuvastatin 20 Mg Tablet PO 20 mg HS CARLOS Administration Spironolactone 25 mg 01/18/24 09:00 01/18/24 09:18 Spironolactone 25 Mg Tablet PO 25 mg DAILY CARLOS Administration Radiology Results: ITS Impressions Chest X-Ray 01/16/24 10:15 IMPRESSION: No acute cardiopulmonary pathology. Head CT 01/16/24 10:46 IMPRESSION: No acute intracranial findings. Breast Ultrasound 01/17/24 08:02 Impression: 1: Ill-defined shadowing of the right breast inferiorly without discrete mass. Correlation with diagnostic right mammogram recommended. BI-RADS CATEGORY 0 - INCOMPLETE STUDY, NEED ADDITIONAL IMAGING EVALUATION. Head/Neck CTA 01/17/24 16:11 IMPRESSION: 1. Normal aging brain. No aneurysm or significant intracranial arterial stenosis. 2. 0% stenosis of the proximal internal carotid arteries relative to normal distal artery lumen diameters (NASCET criteria). Labs Labs: Laboratory Results - last 24 hr 01/17/24 01/17/24 01/18/24 16:20 20:35 05:46 WBC 4.3 L RBC 4.93 Hgb 13.8 L Hct 42.4 MCV 86.0 MCH 28.0 MCHC 32.5 RDW 13.7 Plt Count 136 L MPV 12.6 H Immature Gran % (Auto) 0.2 Neut % (Auto) 54.1 Lymph % (Auto) 33.6 [place] % (Auto) 6.3 Eos % (Auto) 4.2 Baso % (Auto) 1.6 H Lymph # (Auto) 1.45 [place] # (Auto) 0.3 Eos # (Auto) 0.2 Baso # (Auto) 0.1 Abs Immat Gran (auto) 0.01 Absolute Neuts (auto) 2.3 Absolute Nucleated RBC 0.000 Nucleated RBC % 0.0 Sodium 142 Potassium 4.1 Chloride 107 Carbon Dioxide 31 H Anion Gap 4 BUN 14 Creatinine 1.20 Estim Creat Clear Calc 56 Estimated GFR > 60 Glucose 101 POC Capillary Glucose 120 H 110 H Calcium 9.1 Magnesium 2.3 Total Bilirubin 0.7 AST 37 ALT 26 Alkaline Phosphatase 58 Total Protein 7.0 Albumin 4.0 01/18/24 07:36 WBC RBC Hgb Hct MCV MCH MCHC RDW Plt Count MPV Immature Gran % (Auto) Neut % (Auto) Lymph % (Auto) [place] % (Auto) Eos % (Auto) Baso % (Auto) Lymph # (Auto) [place] # (Auto) Eos # (Auto) Baso # (Auto) Abs Immat Gran (auto) Absolute Neuts (auto) Absolute Nucleated RBC Nucleated RBC % Sodium Potassium Chloride Carbon Dioxide Anion Gap BUN Creatinine Estim Creat Clear Calc Estimated GFR Glucose POC Capillary Glucose 97 Calcium Magnesium Total Bilirubin AST ALT Alkaline Phosphatase Total Protein Albumin
--- NOTE | 2024-01-18 14:50 | PM.PNCARD ---
Progress Note: A&P Assessment and Plan (1) Bradycardia, severe sinus: Code(s): R00.1 - Bradycardia, unspecified Status: Acute Plan 1. Sinus bradycardia -none no pauses or AV blocks noted on telemetry -denies any history of lightheadedness, dizziness, palpitation, presyncope or syncope in the past. This episode of dizziness started 2 days ago which is more apparent on opening his eyes and the neck movements -avoid any AV reshma blocking agents -no indication for a pacemaker for now -will do a treadmill test to assess chronotropic competence. it cabn be done as an outpatient if he is discharged -consider discharging home on an 14-day event monitor Subjective Date/time seen: 01/18/24 14:50 Interval history: No acute events overnight complains of headache Feels he will be unable to walk o the treadmill Remains bradycardic Review of Systems Review of Systems: All other systems reviewed and negative except as in the history above. All systems reviewed & are unremarkable except as noted in HPI and below Exam Narrative: General: alert and comfortable Eyes: EOMI, PERRLA ENNT External ears normal, Neck is supple, no masses, Respiratory systems: Clear to auscultation Cardiovascular S1, S2, normal rhythm, no murmur, rub, or gallop; no thrill or palpable murmurs on palpation. Gastrointestinal: soft, non-tender, and non-distended abdomen with no masses; BS present Skin: no rash, lesions, ulcerations, subcutaneous nodules or induration Musculoskeletal: right breast tenderness Neurologic: Alert and oriented x3, non focal Mental Status Exam: normal affect Const: General: comfortable, no acute distress and average body habitus Nutritional Appearance: average body habitus Orientation/consciousness: patient oriented x3 HENMT: Head: normocephalic and atraumatic Ears: hearing grossly normal bilaterally Mouth: Yes moist mucous membranes Eyes: General: appearance normal, both eyes and all related structures Pupils: Equal, round and reactive pupils present Neck: Neck: normal visual inspection and full ROM Chest: Breast/axilla inspection: normal inspection of the axillae Breast/axilla palpation: normal palpation of the axillae Resp: Effort & Inspection: no respiratory distress Auscultation: clear to auscultation bilaterally Cardio: Rate: bradycardic Rhythm: regular rhythm GI: Inspection: non-distended Auscultation: normal bowel sounds Skin: General skin exam: normal color Neuro: General: patient oriented x3, moves all extremities and no focal motor deficits Cranial nerves: Yes Equal, round and reactive pupils present Speech: normal speech Motor exam (neuro): 5/5 motor strength present throughout Extrem: General: normal to inspection and no edema Psych: Mental Status: mental status grossly normal Attitude: cooperative Insight: Good insight present (Psych) Judgement: Good judgement present (Psych) Objective Data Vital Signs Vital Signs: Vital Signs - 24 hr 01/17/24 15:36 01/17/24 16:00 01/17/24 16:00 Temperature 36.5 C Pulse Rate 48 L 53 L Respiratory Rate 16 Blood Pressure 132/48 L Pulse Oximetry 98 Oxygen Delivery Room Air 01/17/24 20:00 01/17/24 20:00 01/17/24 20:00 Temperature 36.2 C L Pulse Rate 94 94 52 L Respiratory Rate 14 14 Blood Pressure 136/56 L Pulse Oximetry 100 100 Oxygen Delivery Room Air 01/18/24 00:00 01/18/24 00:34 01/18/24 04:00 Temperature 36.0 C L 35.9 C L Pulse Rate 38 L 40 L 43 L Respiratory Rate 12 10 L Blood Pressure 142/53 H 172/59 H Pulse Oximetry 99 100 Oxygen Delivery 01/18/24 04:00 01/18/24 08:00 01/18/24 08:00 Temperature 36.1 C L Pulse Rate 42 L 56 L Respiratory Rate 10 L Blood Pressure 124/48 L Pulse Oximetry 95 Oxygen Delivery Room Air 01/18/24 08:00 01/18/24 11:07 01/18/24 11:33 Temperature 35.9 C L Pulse Rate 48 L 51 L Respiratory Rate 11 L Blood Pressure 141/60 H Pulse Oximetry 100 Oxygen Delivery Room Air Intake/Output Intake/Output: Intake & Output 01/15/24 01/16/24 01/17/24 01/18/24 23:59 23:59 23:59 23:59 Intake Total 1230 960 Output Total 100 600 Balance 1130 360 Meds/Results Medications: Active Medications Generic Name Dose Route Start Last Admin Trade Name Freq PRN Reason Stop Dose Admin Acetaminophen 650 mg 01/16/24 15:58 01/18/24 09:18 Acetaminophen 325 Mg Tablet PO 650 mg Q4H PRN Administration Mild Pain (1-3) or Fever Amlodipine Besylate 10 mg 01/18/24 09:00 01/18/24 09:18 Amlodipine Besylate 10 Mg Tablet PO 10 mg DAILY CARLOS Administration Aspirin 81 mg 01/17/24 08:00 01/18/24 09:19 Aspirin 81 Mg Chewable Tablet PO 81 mg DAILY@0800 CARLOS Administration Dextrose 12.5 gm 01/16/24 17:17 Dextrose 50% 25 Gm/50 Ml Syringe IV PUSH PRN PRN Hypoglycemia Protocol Glucagon 1 mg 01/16/24 17:17 Glucagon For Inj 1 Mg Vial IM PRN PRN Hypoglycemia Protocol Glucose 15 gm 01/16/24 17:17 Glucose Oral Gel 15 Gm Of Glucse In 37.5 Gm Tube PO PRN PRN Hypoglycemia Protocol Hydrochlorothiazide 12.5 mg 01/18/24 09:00 01/18/24 09:18 Hydrochlorothiazide 12.5 Mg Capsule PO 12.5 mg DAILY CARLOS Administration Dextrose 1,000 mls @ 100 mls/hr 01/16/24 17:17 Dextrose 5% 1,000 Ml IVPB PRN PRN Hypoglycemia Protocol Insulin Aspart 2 - 5 units 01/17/24 08:00 01/18/24 09:19 Insulin Aspart (*Bkc) 100 Units/Ml SUB-Q Not Given TIDWM [facility] Protocol Meclizine HCl 12.5 mg 01/16/24 23:24 01/17/24 20:42 Meclizine Hcl 12.5 Mg Tablet PO 12.5 mg QID PRN Administration Dizziness Perflutren Lipid Microsphere 0 ml 01/16/24 17:07 Perflutren Lipid Microspheres 1.5 Ml Vial Diluted To 10 Ml Total Volume IV PUSH 01/19/24 17:07 ONCE PRN adequate visualization Protocol Rosuvastatin Calcium 20 mg 01/17/24 21:00 01/17/24 20:42 Rosuvastatin 20 Mg Tablet PO 20 mg HS CARLOS Administration Spironolactone 25 mg 01/18/24 09:00 01/18/24 09:18 Spironolactone 25 Mg Tablet PO 25 mg DAILY CARLOS Administration Radiology Results: ITS Impressions Chest X-Ray 01/16/24 10:15 IMPRESSION: No acute cardiopulmonary pathology. Head CT 01/16/24 10:46 IMPRESSION: No acute intracranial findings. Breast Ultrasound 01/17/24 08:02 Impression: 1: Ill-defined shadowing of the right breast inferiorly without discrete mass. Correlation with diagnostic right mammogram recommended. BI-RADS CATEGORY 0 - INCOMPLETE STUDY, NEED ADDITIONAL IMAGING EVALUATION. Head/Neck CTA 01/17/24 16:11 IMPRESSION: 1. Normal aging brain. No aneurysm or significant intracranial arterial stenosis. 2. 0% stenosis of the proximal internal carotid arteries relative to normal distal artery lumen diameters (NASCET criteria). Labs Labs: Laboratory Results - last 24 hr 01/17/24 01/17/24 01/18/24 16:20 20:35 05:46 WBC 4.3 L RBC 4.93 Hgb 13.8 L Hct 42.4 MCV 86.0 MCH 28.0 MCHC 32.5 RDW 13.7 Plt Count 136 L MPV 12.6 H Immature Gran % (Auto) 0.2 Neut % (Auto) 54.1 Lymph % (Auto) 33.6 [place] % (Auto) 6.3 Eos % (Auto) 4.2 Baso % (Auto) 1.6 H Lymph # (Auto) 1.45 [place] # (Auto) 0.3 Eos # (Auto) 0.2 Baso # (Auto) 0.1 Abs Immat Gran (auto) 0.01 Absolute Neuts (auto) 2.3 Absolute Nucleated RBC 0.000 Nucleated RBC % 0.0 Sodium 142 Potassium 4.1 Chloride 107 Carbon Dioxide 31 H Anion Gap 4 BUN 14 Creatinine 1.20 Estim Creat Clear Calc 56 Estimated GFR > 60 Glucose 101 POC Capillary Glucose 120 H 110 H Calcium 9.1 Magnesium 2.3 Total Bilirubin 0.7 AST 37 ALT 26 Alkaline Phosphatase 58 Total Protein 7.0 Albumin 4.0 01/18/24 07:36 WBC RBC Hgb Hct MCV MCH MCHC RDW Plt Count MPV Immature Gran % (Auto) Neut % (Auto) Lymph % (Auto) [place] % (Auto) Eos % (Auto) Baso % (Auto) Lymph # (Auto) [place] # (Auto) Eos # (Auto) Baso # (Auto) Abs Immat Gran (auto) Absolute Neuts (auto) Absolute Nucleated RBC Nucleated RBC % Sodium Potassium Chloride Carbon Dioxide Anion Gap BUN Creatinine Estim Creat Clear Calc Estimated GFR Glucose POC Capillary Glucose 97 Calcium Magnesium Total Bilirubin AST ALT Alkaline Phosphatase Total Protein Albumin
--- NOTE | 2024-01-18 16:08 | P.DS_ITS ---
DS: Admitting Diagnosis Discharge Date 01/18/24 Admitting Diagnosis Vertigo DS: Discharge Diagnosis Discharge Diagnosis (1) Chest pain at rest: Code(s): R07.9 - Chest pain, unspecified Status: Acute (2) Bradycardia, severe sinus: Code(s): R00.1 - Bradycardia, unspecified Status: Acute (3) Pain of right breast: Code(s): N64.4 - Mastodynia Status: Acute DS: Summary Hospital Course Hospital Course: 68-year-old male past medical history of the type 2 diabetes hypertension hyperlipidemia, history of right breast lump status post lumpectomy presented to the ER on account of dizziness and Right breast pain. Patient reported he was in his usual state of health until yesterday when he stated haivng dizziness, which he described as the room spinning. Exacerbated with movement especially with head movements. Denies any lightheadedness, no chest pressure no fall no loss of consciousness no head trauma. Also reported a right breast pain, noted about a year ago he had lumpectomy on the same side as the having his pain about a few months ago has contacted his primary care physician but are trying to set him up with General surgery. Otherwise no diarrhea no abdominal pain and vomiting focal symptoms and no runny nose. Her blood pressure 131/66, pulse 74, respiratory 16 status night 99% on room air. ER noted that patient's heart rate was in the 40s on presentation on EKG showed sinus bradycardia who receive atropine which improved heart rate into the 70s. Labs mostly unremarkable. CT head and chest unremarkable patient was admitted for further evaluation and care. neurology was consulted prior to admission. Robin was unable to do MRI due to a metal was found in his face, neurology was consulted and recommended CTA head and neck and noted if negative patient can continue Vestibular therapy outpatient. CTA head and carotids were normal and patien will continue Vestibular therapy outpatient Cardiology was consulted for Bradycardia and they evaluated and recommended no AV ansley. They will follow up outpatient for stress test.ECHO showed EF 63%. Will discharge on event monitor per cardiology right breast ultrasound showed ill-defined shadowing with no discrete mass. Patient will continue outpatient surgery follow up [facility] he stated his PCP is setting up for him. F/u with PCP in 3- 5 days, continue follow up with Cardiology, Neurology as instructed and follow up with PCP for onward referral to Gen surgery. Assessment and Plan (1) Bradycardia, severe sinus: Code(s): R00.1 - Bradycardia, unspecified Status: Acute (2) Vertigo: Code(s): R42 - Dizziness and giddiness Status: Acute Plan Vertigo Patient presented with dizziness worse with movement especially head movement CT head unremarkable MRI brain botched as patient was found to have a metal in his face which he ws not aware of CTA head with carotids normal PT/OT consulted Neurology following continue Meclizine for now Possible Sinus Bradycardia EKG showed sinus bradycardia Patient received Atropine which improved HR to 70s. ECHO EF 63% , troponin negative For stress test Cardiology following Right breast pain tenderness on palpation Ultrasound Ill-defined shadowing of the right breast inferiorly without discrete mass. Correlation with diagnostic right mammogram recommended. outpatient mammogram GEn surgery consulted Headache CT head unremarkabel contineu PRN pain control DM2 SSi with accucheks monitor HTN titrate home meds with clinical course HLD continue Statin Time Spent with Patient Time attestation: Total time spent providing and/or coordinating discharge services: DS: Data Data Completed and Pending Labs on day of discharge: Labs from last 24 hours 01/18/24 01/18/24 01/17/24 07:36 05:46 20:35 WBC 4.3 L RBC 4.93 Hgb 13.8 L Hct 42.4 MCV 86.0 MCH 28.0 MCHC 32.5 RDW 13.7 Plt Count 136 L MPV 12.6 H Immature Gran % (Auto) 0.2 Neut % (Auto) 54.1 Lymph % (Auto) 33.6 [place] % (Auto) 6.3 Eos % (Auto) 4.2 Baso % (Auto) 1.6 H Lymph # (Auto) 1.45 [place] # (Auto) 0.3 Eos # (Auto) 0.2 Baso # (Auto) 0.1 Abs Immat Gran (auto) 0.01 Absolute Neuts (auto) 2.3 Absolute Nucleated RBC 0.000 Nucleated RBC % 0.0 Sodium 142 Potassium 4.1 Chloride 107 Carbon Dioxide 31 H Anion Gap 4 BUN 14 Creatinine 1.20 Estim Creat Clear Calc 56 Estimated GFR > 60 Glucose 101 POC Capillary Glucose 97 110 H Calcium 9.1 Magnesium 2.3 Total Bilirubin 0.7 AST 37 ALT 26 Alkaline Phosphatase 58 Total Protein 7.0 Albumin 4.0 01/17/24 16:20 WBC RBC Hgb Hct MCV MCH MCHC RDW Plt Count MPV Immature Gran % (Auto) Neut % (Auto) Lymph % (Auto) [place] % (Auto) Eos % (Auto) Baso % (Auto) Lymph # (Auto) [place] # (Auto) Eos # (Auto) Baso # (Auto) Abs Immat Gran (auto) Absolute Neuts (auto) Absolute Nucleated RBC Nucleated RBC % Sodium Potassium Chloride Carbon Dioxide Anion Gap BUN Creatinine Estim Creat Clear Calc Estimated GFR Glucose POC Capillary Glucose 120 H Calcium Magnesium Total Bilirubin AST ALT Alkaline Phosphatase Total Protein Albumin Discharge Plan Discharge Attending physician on discharge: Hetal Devlin Consulting providers: Henry Cruz; Britt Adams Discharging Clinician: Hetal Devlin Anticipated Discharge Date/Time: 01/18/24 16:05 Patient Disposition: Home, Self-Care Activity: as tolerated Diet: as tolerated Discharge Instructions: Set up Event monitor prior to discharge F/u with cardiology as instructed for further ischemic workup F/u with PT for vestibular therapy Patient Instructions: Antibiotic Form Patient Language: Chadian Stand Alone Forms: General Discharge Information Follow-up/Referrals: All Goode MD [Physician] - 6 Weeks (Patient can follow-up with Dr. Goode 4-6 weeks after discharge for persistent right breast discomfort. Altern atively, he could follow-up with Dr. Rosenberg, a dedicated breast surgeon, when she returns from maternity leave in February or March.) Discharge Medications: New meclizine 12.5 mg Tablet 12.5 mg PO QID PRN (Reason: Dizziness) 30 Days Qty: 60 0RF Continued amlodipine 10 mg tablet 10 mg PO DAILY celecoxib 100 mg capsule 100 mg PO Q24H cetirizine 10 mg tablet 10 mg PO DAILY hydrochlorothiazide 12.5 mg capsule 12.5 mg PO DAILY metformin 500 mg tablet extended release 24 hr 500 mg PO DAILY rosuvastatin 20 mg tablet 20 mg PO HS spironolactone 25 mg tablet 25 mg PO DAILY Other Ambulatory Orders: [place] cardiac event monitor (Routine) Timeframe: 1 Month Location: [facility] Cardiology Ordered By: Britt Adams Date of admission: 01/16/24 15:58 Primary Care Provider: Jaison,Ebenezer Jospeh Admitting Provider: Sisi Mc Attending physician on admission: Sisi Mc Condition: Stable
== END 2024-01-18 16:15 | disposition home or self-care (01) ==
LOC: ANHED 14:21 → ANH3MEDSUR 17:22
PROVIDERS: Admitting Provider Hospitalist; Emergency Provider Emergency Medicine; PCP Family Medicine; Visit Provider Internal Medicine
DX: R00.1 Bradycardia, unspecified (principal); R42 Dizziness and giddiness; R07.9 Chest pain, unspecified; N64.4 Mastodynia; R51.9 Headache, unspecified; E11.9 Type 2 diabetes mellitus without complications; I10 Essential (primary) hypertension; E78.5 Hyperlipidemia, unspecified; Z79.84 Long term (current) use of oral hypoglycemic drugs; Z79.899 Other long term (current) drug therapy
CPT/HCPCS: 36415; 70450; 70496; 70498; 71046; 76641; 80053; 82948; 83690; 83735; 84484; 85025; 85610; 85730; 93005; 93306; 96372; 96374; 96375; 97110; 97161; 97165; 97530; 99285; A9270; G0378; J2405; Q9967